=== PATIENT | female | born 1930 | race Caucasian/White ===

== ENCOUNTER 2017-05-04 18:29 | Inpatient (IN) | payer MEDICARE ==
[2017-05-04] MEDS ORDERED: ACETAMINOPHEN TAB 500 MG TAB PO STA (19:21)
[2017-05-04] MEDS ORDERED: MORPHINE SULFATE 2 MG/ML SYRINGE IVP STA (19:22)
--- NOTE | 2017-05-04 19:24 | ED ---
General Adult HPI - General Chief complaint: Fever Stated complaint: altered mental status Time Seen by Provider: 05/04/17 19:14 Source: family, EMS, RN notes reviewed Mode of arrival: EMS Limitations: altered mental status - History of Present Illness Initial comments: Patient is an 86-year-old female presenting to the emergency department for drowsiness and weakness. Patient went to bed last night and never got out of bed today. Patient has had similar symptoms previously associated with urinary tract infection. No cough. Family states there is a fever. Family requests pain medication for the patient stating she complained of her chronic pain. Patient is deaf and provides limited history. - Related Data Home Medications Medication Instructions Recorded Confirmed Furosemide [Lasix] 20 mg PO QAM 01/19/16 05/04/17 Lisinopril [Zestril] 10 mg PO DAILY 01/19/16 05/04/17 Pantoprazole Sodium 40 mg PO DAILY 01/19/16 05/04/17 Pregabalin [Lyrica] 100 mg PO TID 01/19/16 05/04/17 Aspirin EC [Ecotrin Low Dose] 81 mg PO DAILY 05/04/17 05/04/17 Atorvastatin Calcium [Lipitor] 80 mg PO HS 05/04/17 05/04/17 Cholecalciferol [Vitamin D3] 5,000 unit PO DAILY 05/04/17 05/04/17 Levothyroxine Sodium [Synthroid] 25 mcg PO QAM 05/04/17 05/04/17 Metoprolol Tartrate [Lopressor] 12.5 mg PO BID 05/04/17 05/04/17 oxyCODONE-APAP 5-325MG [Percocet 1 tab PO TID 05/04/17 05/04/17 5-325 mg] predniSONE 2.5 mg PO Q48H 05/04/17 05/04/17 predniSONE 5 mg PO Q48H 05/04/17 05/04/17 Allergies Allergy/AdvReac Type Severity Reaction Status Date / Time nitrofurantoin Allergy Unknown Verified 05/04/17 19:04 [From Macrobid] nitrofurantoin Allergy Unknown Verified 05/04/17 19:04 macrocrystalline [From Macrobid] ciprofloxacin [From Cipro] AdvReac Hallucinati Verified 05/04/17 19:43 ons ciprofloxacin HCl AdvReac Hallucinati Verified 05/04/17 19:43 [From Cipro] ons Review of Systems ROS Statement: Those systems with pertinent positive or pertinent negative responses have been documented in the HPI. ROS Other: All systems not noted in ROS Statement are negative. Limitations: ROS unobtainable due to patients medical condition Constitutional: Reports: fever Endocrine: Reports: fatigue Past Medical History Past Medical History: Coronary Artery Disease (CAD), Hyperlipidemia, Hypertension, Myocardial Infarction ([place]) Additional Past Medical History / Comment(s): deaf, depression followed by psychiatry, arthritis, sciatica, degen. disc disease, cataracts Last Myocardial Infarction Date:: 10/01/2014 History of Any Multi-Drug Resistant Organisms: MRSA Date of last positivie culture/infection: 02/11/2016 MDRO Source:: URINE Past Surgical History: Unable to Obtain, Hysterectomy Additional Past Surgical History / Comment(s): eye lid surgery, hip replacement , [place] with stents 2013 Past Anesthesia/Blood Transfusion Reactions: No Reported Reaction Date of Last Stent Placement:: 10/01/2014 Past Psychological History: Depression Smoking Status: Never smoker Past Alcohol Use History: None Reported Past Drug Use History: None Reported - Past Family History Mother Family Medical History: Cancer General Exam Limitations: altered mental status General appearance: in no apparent distress, other (Patient is sleeping but arousable to touch) Head exam: Present: atraumatic Eye exam: Present: normal appearance, PERRL ENT exam: Present: normal oropharynx Neck exam: Present: normal inspection. Absent: tenderness, meningismus Respiratory exam: Present: normal lung sounds bilaterally Cardiovascular Exam: Present: regular rate, normal rhythm GI/Abdominal exam: Present: soft. Absent: tenderness Extremities exam: Present: normal inspection Neurological exam: Present: alert Psychiatric exam: Present: flat affect Skin exam: Present: normal color Course Vital Signs 05/04/17 05/04/17 05/04/17 18:36 19:39 20:00 Temperature 102.1 F H 100.7 F H Pulse Rate 100 94 Respiratory 26 H 20 Rate Blood Pressure 171/72 129/68 O2 Sat by Pulse 97 97 Oximetry EKG Findings - EKG Comments: EKG Findings:: Normal sinus rhythm at 90. RI 178. QRS 74. QT 370. QTc 462. Normal axis. Normal QRS. No acute ST change. Medical Decision Making - Medical Decision Making Patient reexamined and somewhat more alert and improved. Source of fever is not identifiable at this time. No meningismus. Family updated on results. Case discussed with Dr. Garcia, who will admit for Dr. Sol. He does request neurology evaluation and Zosyn and vancomycin. Patient does not meet sepsis criteria as source of infection is not identifiable at this time. - Lab Data Result diagrams: 05/04/17 18:59 05/04/17 19:24 Lab Results 05/04/17 05/04/17 05/04/17 Range/Units 18:59 18:59 18:59 WBC 9.8 (3.8-10.6) k/uL RBC 3.97 (3.80-5.40) m/uL Hgb 11.6 (11.4-16.0) gm/dL Hct 35.9 (34.0-46.0) % MCV 90.3 (80.0-100.0) fL MCH 29.1 (25.0-35.0) pg MCHC 32.3 (31.0-37.0) g/dL RDW 14.0 (11.5-15.5) % Plt Count 191 (150-450) k/uL Neutrophils % 60 % Lymphocytes % 24 % Monocytes % 10 % Eosinophils % 2 % Basophils % 0 % Neutrophils # 5.8 (1.3-7.7) k/uL Lymphocytes # 2.4 (1.0-4.8) k/uL Monocytes # 1.0 (0-1.0) k/uL Eosinophils # 0.2 (0-0.7) k/uL Basophils # 0.0 (0-0.2) k/uL PT 10.1 (9.0-12.0) sec INR 1.0 (<1.1) APTT 19.4 L (22.0-30.0) sec Sodium (137-145) mmol/L Potassium (3.5-5.1) mmol/L Chloride (98-107) mmol/L Carbon Dioxide (22-30) mmol/L Anion Gap mmol/L BUN (7-17) mg/dL Creatinine (0.52-1.04) mg/dL Est GFR (MDRD) Af Amer (>60 ml/min/1.73 sqM) Est GFR (MDRD) Non-Af (>60 ml/min/1.73 sqM) Glucose (74-99) mg/dL Plasma Lactic Acid Juan Carlos 1.2 (0.7-2.0) mmol/L Calcium (8.4-10.2) mg/dL Total Bilirubin (0.2-1.3) mg/dL AST (14-36) U/L ALT (9-52) U/L Alkaline Phosphatase (38-126) U/L Total Protein (6.3-8.2) g/dL Albumin (3.5-5.0) g/dL Urine Color Urine Appearance (Clear) Urine pH (5.0-8.0) Ur Specific [place] (1.001-1.035) Urine Protein (Negative) Urine Glucose (UA) (Negative) Urine Ketones (Negative) Urine Blood (Negative) Urine Nitrite (Negative) Urine Bilirubin (Negative) Urine Urobilinogen (<2.0) mg/dL Ur Leukocyte Esterase (Negative) 05/04/17 05/04/17 Range/Units 18:59 19:24 WBC (3.8-10.6) k/uL RBC (3.80-5.40) m/uL Hgb (11.4-16.0) gm/dL Hct (34.0-46.0) % MCV (80.0-100.0) fL MCH (25.0-35.0) pg MCHC (31.0-37.0) g/dL RDW (11.5-15.5) % Plt Count (150-450) k/uL Neutrophils % % Lymphocytes % % Monocytes % % Eosinophils % % Basophils % % Neutrophils # (1.3-7.7) k/uL Lymphocytes # (1.0-4.8) k/uL Monocytes # (0-1.0) k/uL Eosinophils # (0-0.7) k/uL Basophils # (0-0.2) k/uL PT (9.0-12.0) sec INR (<1.1) APTT (22.0-30.0) sec Sodium 143 (137-145) mmol/L Potassium 3.7 (3.5-5.1) mmol/L Chloride 110 H (98-107) mmol/L Carbon Dioxide 25 (22-30) mmol/L Anion Gap 8 mmol/L BUN 24 H (7-17) mg/dL Creatinine 1.05 H (0.52-1.04) mg/dL Est GFR (MDRD) Af Amer >60 (>60 ml/min/1.73 sqM) Est GFR (MDRD) Non-Af 50 (>60 ml/min/1.73 sqM) Glucose 92 (74-99) mg/dL Plasma Lactic Acid [place] (0.7-2.0) mmol/L Calcium 8.7 (8.4-10.2) mg/dL Total Bilirubin 1.5 H (0.2-1.3) mg/dL AST 21 (14-36) U/L ALT 27 (9-52) U/L Alkaline Phosphatase 110 (38-126) U/L Total Protein 5.8 L (6.3-8.2) g/dL Albumin 3.3 L (3.5-5.0) g/dL Urine Color Yellow Urine Appearance Clear (Clear) Urine pH 5.5 (5.0-8.0) Ur Specific [place] 1.016 (1.001-1.035) Urine Protein Negative (Negative) Urine Glucose (UA) Negative (Negative) Urine Ketones Negative (Negative) Urine Blood Negative (Negative) Urine Nitrite Negative (Negative) Urine Bilirubin Negative (Negative) Urine Urobilinogen <2.0 (<2.0) mg/dL Ur Leukocyte Esterase Negative (Negative) - Radiology Data Radiology results: image reviewed (Chest x-ray shows no acute infiltrate) Disposition Clinical Impression: Altered mental status, Fever Disposition: ADMITTED IP TO THIS [facility] Referrals: Ivone Sol DO [Primary Care Provider] - 1-2 days Decision Time: 20:51
[2017-05-04 19:34] LABS: Appearance,Urine Clear (Clear); Basophils % (A) 0 %; Bilirubin,Urine Negative (Negative); CH 29.3; CHCM 32.6; Eosinophils # (A) 0.2 k/uL (0-0.7); Eosinophils % (A) 2 %; Glucose,Urine (UA) Negative (Negative); HCT 35.9 % (34.0-46.0); HDW 2.68; HGB 11.6 gm/dL (11.4-16.0); Ketones,Urine Negative (Negative); Leukocyte Esterase,Urine Negative (Negative); Luc % (Auto) 4; Lymphocytes # (A) 2.4 k/uL (1.0-4.8); Lymphocytes % (A) 24 %; MCH 29.1 pg (25.0-35.0); MCHC 32.3 g/dL (31.0-37.0); MCV 90.3 fL (80.0-100.0); Mean Platelet Volume 7.8; Monocytes % (A) 10 %; Neutrophils # (A) 5.8 k/uL (1.3-7.7); Neutrophils % (A) 60 %; Nitrite,Urine Negative (Negative); PH, Urine 5.5 (5.0-8.0); Protein,Urine Negative (Negative); RBC 3.97 m/uL (3.80-5.40); Specific Gravity,Urine 1.016 (1.001-1.035); UA Billing (MACRO vs. MICRO) CHEM; Urobilinogen,Urine <2.0 mg/dL (<2.0); WBC 9.8 k/uL (3.8-10.6); WBC (Perox) 10.16
[2017-05-04 19:57] LABS: Prothrombin Time 10.1 sec (9.0-12.0)
[2017-05-04] MEDS: SODIUM CHLORIDE 0.9% 500 ML IV SCH ×2 (20:06→20:40)
[2017-05-04 20:16] LABS: Partial Thromboplastin Time 19.4 sec (22.0-30.0)
--- NOTE | 2017-05-04 20:23 | XR ---
EXAMINATION TYPE: XR chest 2V DATE OF EXAM: 05/04/2017 COMPARISON: 01/28/2016 HISTORY: Fever and lethargy TECHNIQUE: Frontal and lateral views of the chest are obtained. FINDINGS: Heart size is normal. There is no heart failure. There is no sign of definite pleural flui d. There are chest leads. IMPRESSION: No active cardiopulmonary disease. There is clearing of the pleural effusions and pulmon umberto vascular congestion compared to old exam.
[2017-05-04 20:44] LABS: ALT 27 U/L (9-52); AST 21 U/L (14-36); Alkaline Phosphatase 110 U/L (38-126); Anion Gap 8 mmol/L; Blood Urea Nitrogen 24 mg/dL (7-17); Calcium 8.7 mg/dL (8.4-10.2); Carbon Dioxide 25 mmol/L (22-30); Chloride 110 mmol/L (98-107); Glucose 92 mg/dL (74-99); Non-African American GFR(MDRD) 50 (>60 ml/min/1.73 sqM); Potassium 3.7 mmol/L (3.5-5.1); Sodium 143 mmol/L (137-145); Total Bilirubin 1.5 mg/dL (0.2-1.3); Total Protein 5.8 g/dL (6.3-8.2)
[2017-05-04] MEDS ORDERED: NALOXONE 0.4 MG/ML 1 ML VIAL IV PRN (20:51)
[2017-05-04] MEDS ORDERED: ACETAMINOPHEN TAB 325 MG TAB PO PRN (20:51)
[2017-05-04] MEDS ORDERED: IV VANCOMYCIN PER PHARMACY 1 EACH MISC MISCELLANE PRN (20:53)
[2017-05-04] MEDS ORDERED: VANCOMYCIN 1,250 MG in SODIUM CHLORIDE 0.9% 250 ML IVPB ONE (21:15)
[2017-05-04] MEDS: SODIUM CHLORIDE 0.9% 1,000 ML IV SCH (21:36)
[2017-05-04] MEDS: PIPERACILLIN-TAZOBACTAM 3.375 GM in DEXTROSE/WATER 1 50ML.BAG IVPB SCH (21:37)
--- NOTE | 2017-05-04 21:43 | US ---
EXAMINATION TYPE: US gallbladder DATE OF EXAM: 05/04/2017 COMPARISON: Prior CT and renal ultrasound in PACS CLINICAL HISTORY: fever, Abdominal pain, history of renal failure. Altered mental status. Patient is deaf per family making this an extremely difficult and limited exam due to patient being unable to fo llow instructions to take deep breaths in and hold, roll over, ect. . EXAM MEASUREMENTS: Liver Length: 12.7 cm Gallbladder Wall: 0.2 cm CBD: 0.3 cm Right Kidney: 8.1 x 4.1 x 3.8 cm Pancreas: Obscured by bowel gas Liver: Limited visualization- Obscured by bowel gas. Hyperechoic foci visualized measuring 0.6 cm, p ossible calcification visualized on prior CT Gallbladder: Echogenic foci visualized within fundus. Appears slightly hydropic. Evidence for sonographic Greene's sign: No CBD: wnl as visualized, distal portion is obscured by bowel gas Right Kidney: Measuring small. No hydronephrosis, no cystic or solid masses visualized IMPRESSION: dilated gallbladder with gallstones. This is suggestive of cholecystitis. No dilated duct s. No ascites. Gallbladder measures 9.2 x 4.5 cm.
--- NOTE | 2017-05-04 22:06 | CT ---
EXAMINATION TYPE: CT brain wo con DATE OF EXAM: 05/04/2017 COMPARISON: December 21, 2014 HISTORY: ams CT DLP: 1058 mGycm Automated exposure control for dose reduction was used. FINDINGS: There is no mass effect nor midline shift. There is no sign of intracranial hemorrhage. There is mild cerebral atrophy. The calvarium is intact. IMPRESSION: MILD ATROPHY. NO ACUTE INTRACRANIAL ABNORMALITY. NO CHANGE COMPARED TO OLD EXAM.
[2017-05-04 23:31] VITALS: BMI 30.8
[2017-05-05] MEDS: ONDANSETRON 4 MG/2 ML VIAL IVP PRN (03:24)
[2017-05-05] MEDS: HYDROmorphone 1 MG/ML 1 ML SYRINGE IVP PRN ×5 (03:24→21:33)
[2017-05-05 08:07] LABS: ALT 23 U/L (9-52); AST 18 U/L (14-36); Alkaline Phosphatase 75 U/L (38-126); Anion Gap 5 mmol/L; Blood Urea Nitrogen 20 mg/dL (7-17); Calcium 7.6 mg/dL (8.4-10.2); Carbon Dioxide 25 mmol/L (22-30); Chloride 113 mmol/L (98-107); Glucose 82 mg/dL (74-99); Non-African American GFR(MDRD) 52 (>60 ml/min/1.73 sqM); Potassium 3.4 mmol/L (3.5-5.1); Sodium 143 mmol/L (137-145); Total Bilirubin 1.5 mg/dL (0.2-1.3); Total Protein 4.8 g/dL (6.3-8.2)
[2017-05-05 08:15] LABS: Basophils % (A) 0 %; CH 29.2; CHCM 31.6; Eosinophils # (A) 0.1 k/uL (0-0.7); Eosinophils % (A) 2 %; HCT 31.4 % (34.0-46.0); HDW 2.62; Luc % (Auto) 3; Lymphocytes # (A) 1.7 k/uL (1.0-4.8); Lymphocytes % (A) 27 %; MCH 29.6 pg (25.0-35.0); MCHC 31.9 g/dL (31.0-37.0); MCV 92.9 fL (80.0-100.0); Mean Platelet Volume 7.4; Monocytes # (A) 0.4 k/uL (0-1.0); Monocytes % (A) 7 %; Neutrophils # (A) 3.9 k/uL (1.3-7.7); Neutrophils % (A) 62 %; RBC 3.38 m/uL (3.80-5.40); WBC 6.3 k/uL (3.8-10.6); WBC (Perox) 6.64
[2017-05-05] MEDS: SODIUM CHLORIDE 0.9% 1,000 ML IV SCH (11:15)
[2017-05-05] MEDS: PIPERACILLIN-TAZOBACTAM 3.375 GM in DEXTROSE/WATER 1 50ML.BAG IVPB SCH (11:18)
--- NOTE | 2017-05-05 16:33 | P.HPIM ---
History of Present Illness H&P Date: 05/05/17 Chief Complaint: Febrile illness Patient is an 86-year-old female presenting to the emergency department for drowsiness and weakness. Patient went to bed last night and never got out of bed today. Patient has had similar symptoms previously associated with urinary tract infection. No cough. Family states there is a fever. Family requests pain medication for the patient stating she complained of her chronic pain. Patient is deaf and provides limited history. Past Medical History Past Medical History: Coronary Artery Disease (CAD), Hyperlipidemia, Hypertension, Myocardial Infarction ([place]) Additional Past Medical History / Comment(s): deaf, depression followed by psychiatry, arthritis, sciatica, degen. disc disease, cataracts, multiple UTIs Last Myocardial Infarction Date:: 10/01/2014 History of Any Multi-Drug Resistant Organisms: MRSA Date of last positivie culture/infection: 02/11/2016 MDRO Source:: URINE Past Surgical History: Unable to Obtain, Heart Catheterization With Stent, Hysterectomy Additional Past Surgical History / Comment(s): eye lid surgery, hip replacement , [place] with stents 2013, cysts removal from breasts Past Anesthesia/Blood Transfusion Reactions: No Reported Reaction Date of Last Stent Placement:: 10/01/2014 Past Psychological History: Depression Smoking Status: Never smoker Past Alcohol Use History: None Reported Past Drug Use History: None Reported - Past Family History Daughter(s) Family Medical History: Cancer Additional Family Medical History / Comment(s): cervical cancer Son(s) Family Medical History: Liver Disease Sister(s) Family Medical History: Cancer, Myocardial Infarction ([place]) Mother Family Medical History: Cancer Additional Family Medical History / Comment(s): colon cancer Medications and Allergies Home Medications Medication Instructions Recorded Confirmed Type Furosemide [Lasix] 20 mg PO QAM 01/19/16 05/04/17 History Lisinopril [Zestril] 10 mg PO DAILY 01/19/16 05/04/17 History Pantoprazole Sodium 40 mg PO DAILY 01/19/16 05/04/17 History Pregabalin [Lyrica] 100 mg PO TID 01/19/16 05/04/17 History Aspirin EC [Ecotrin Low Dose] 81 mg PO DAILY 05/04/17 05/04/17 History Atorvastatin Calcium [Lipitor] 80 mg PO HS 05/04/17 05/04/17 History Cholecalciferol [Vitamin D3] 5,000 unit PO DAILY 05/04/17 05/04/17 History Levothyroxine Sodium [Synthroid] 25 mcg PO QAM 05/04/17 05/04/17 History Metoprolol Tartrate [Lopressor] 12.5 mg PO BID 05/04/17 05/04/17 History oxyCODONE-APAP 5-325MG [Percocet 1 tab PO TID 05/04/17 05/04/17 History 5-325 mg] predniSONE 2.5 mg PO Q48H 05/04/17 05/04/17 History predniSONE 5 mg PO Q48H 05/04/17 05/04/17 History Allergies Allergy/AdvReac Type Severity Reaction Status Date / Time nitrofurantoin Allergy Unknown Verified 05/04/17 19:04 [From Macrobid] nitrofurantoin Allergy Unknown Verified 05/04/17 19:04 macrocrystalline [From Macrobid] ciprofloxacin [From Cipro] AdvReac Hallucinati Verified 05/04/17 19:43 ons ciprofloxacin HCl AdvReac Hallucinati Verified 05/04/17 19:43 [From Cipro] ons Physical Exam Vitals: Vital Signs Temp Pulse Pulse Resp BP BP Pulse Ox 05/05/17 16:00 79 18 05/05/17 15:00 98.3 F 79 18 129/57 98 05/05/17 08:00 76 18 05/05/17 07:00 98.0 F 76 18 158/67 100 05/05/17 00:00 75 18 05/04/17 22:30 98.2 F 75 18 124/60 98 05/04/17 22:00 100.0 F H 69 20 102/51 05/04/17 21:00 100.1 F H 88 16 106/50 98 05/04/17 20:00 100.7 F H 05/04/17 19:39 94 20 129/68 97 05/04/17 18:36 102.1 F H 100 26 H 171/72 97 Intake and Output 05/05/17 05/05/17 05/05/17 06:59 14:59 22:59 Intake Total 630 Balance 630 Intake: Intake, IV Titration 630 Amount Sodium Chloride 0.9% 1, 630 000 ml @ 105 mls/hr IV . Q9H32M [facility] Rx#:[id number] Other: Voiding Method Bedpan Bedpan Bedpan # Voids 1 1 1 Weight 79 kg 79 kg 79 kg Patient Weight 05/06/17 06:59 Weight 79 kg In general patient is alert she is deaf she is able to read off the paper and answer questions appropriately HEENT head normocephalic and atraumatic Neck is supple no JVD no goiter no lymphadenopathy Chest exam reveals a few scattered crackles no wheezing Cardiac exam reveals regular heart sounds S1 and S2 no gallops no murmurs Abdomen is soft with mild epigastric tenderness no organomegaly with normal bowel sounds Extremity exam reveals no edema no cyanosis or clubbing Results CBC & Chem 7: 05/05/17 07:12 05/05/17 07:12 Labs: Abnormal Lab Results - Last 24 Hours (Table) 05/04/17 05/04/17 05/05/17 Range/Units 18:59 19:24 07:12 RBC 3.38 L (3.80-5.40) m/uL Hgb 10.0 L D (11.4-16.0) gm/dL Hct 31.4 L (34.0-46.0) % APTT 19.4 L (22.0-30.0) sec Potassium (3.5-5.1) mmol/L Chloride 110 H (98-107) mmol/L BUN 24 H (7-17) mg/dL Creatinine 1.05 H (0.52-1.04) mg/dL Calcium (8.4-10.2) mg/dL Total Bilirubin 1.5 H (0.2-1.3) mg/dL Total Protein 5.8 L (6.3-8.2) g/dL Albumin 3.3 L (3.5-5.0) g/dL 05/05/17 Range/Units 07:12 RBC (3.80-5.40) m/uL Hgb (11.4-16.0) gm/dL Hct (34.0-46.0) % APTT (22.0-30.0) sec Potassium 3.4 L (3.5-5.1) mmol/L Chloride 113 H (98-107) mmol/L BUN 20 H (7-17) mg/dL Creatinine (0.52-1.04) mg/dL Calcium 7.6 L (8.4-10.2) mg/dL Total Bilirubin 1.5 H (0.2-1.3) mg/dL Total Protein 4.8 L (6.3-8.2) g/dL Albumin 2.5 L (3.5-5.0) g/dL Microbiology - Last 24 Hours (Table) 05/04/17 18:59 Urine Culture - Preliminary Urine,Catheterized Thrombosis Risk Factor Assmnt - Choose All That Apply Any of the Below Risk Factors Present?: Yes Each Factor Represents 1 point: Acute [place] Other Risk Factors: Yes Each Risk Factor Represents 3 Points: Age 75 years or older Other congenital or acquired thrombophilia - If yes, enter type in comment: No Thrombosis Risk Factor Assessment Total Risk Factor Score: 4 Thrombosis Risk Factor Assessment Level: Moderate Risk Assessment and Plan Plan: #1 febrile illness, cause initially unclear, urine did not reveal any evidence of infection, chest x-ray did not reveal any acute abnormality, case was discussed was ER physician and I have asked him to proceed with abdomen ultrasound, this was done later end revealed evidence of dilated gallbladder with gallstones with evidence of cholecystitis, consultation for Dr. pratt was initiated. At this time will continue with IV antibiotic Zosyn and vancomycin #2 mental status changes on presentation, computed tomography scan of the brain was done and revealed evidence of atrophy without any evidence of acute intracranial abnormality otherwise. #3 underlying history of hypertension well-controlled on current medications #4 underlying history of hypothyroidism maintained on Synthroid 25 g daily #5 underlying history of coronary artery disease with previous history of myocardial infarction stable at this time without any evidence of cardiac disease #6 patient is deaf she is able to communicate with reading questions and answering them At this time continue with current management with IV antibiotic awaiting surgery input will follow closely
--- NOTE | 2017-05-05 19:18 | P.CNNES ---
History of Present Illness Consult date: 05/05/17 History of Present Illness: The patient is a 86-year-old woman who has been in her usual health up until 2 days ago when her daughter found that she was sleeping excessively. She also had a fever. She was brought to the emergency room for excessive somnolence and fever. The patient apparently had similar episodes in the past associated with urosepsis. She was placed on IV antibiotics and neurology was called to see the patient regarding mental status changes. The patient's daughter is at her bedside. She states that her mother's but is able to communicate by reading what is written. She is much more alert and back to her baseline today according to her daughter. The patient denies any pain. She did states she is feeling well. She states her only complaint is chronic leg pain which she's had for 3-10 years. She had a CT of the brain in the emergency room which showed mild atrophy. Review of Systems Constitutional: Denies chills, Denies fever Eyes: denies blurred vision, denies pain Cardiovascular: Denies chest pain, Denies shortness of breath Respiratory: Denies cough Gastrointestinal: Reports as per HPI Genitourinary: Denies dysuria, Denies hematuria Neurological: Denies numbness, Denies weakness Psychiatric: Denies anxiety, Denies depression Past Medical History Past Medical History: Coronary Artery Disease (CAD), Hyperlipidemia, Hypertension, Myocardial Infarction ([place]) Additional Past Medical History / Comment(s): deaf, depression followed by psychiatry, arthritis, sciatica, degen. disc disease, cataracts, multiple UTIs Last Myocardial Infarction Date:: 10/01/2014 History of Any Multi-Drug Resistant Organisms: MRSA Date of last positivie culture/infection: 02/11/2016 MDRO Source:: URINE Past Surgical History: Unable to Obtain, Heart Catheterization With Stent, Hysterectomy Additional Past Surgical History / Comment(s): eye lid surgery, hip replacement , [place] with stents 2013, cysts removal from breasts Past Anesthesia/Blood Transfusion Reactions: No Reported Reaction Date of Last Stent Placement:: 10/01/2014 Past Psychological History: Depression Smoking Status: Never smoker Past Alcohol Use History: None Reported Past Drug Use History: None Reported - Past Family History Daughter(s) Family Medical History: Cancer Additional Family Medical History / Comment(s): cervical cancer Son(s) Family Medical History: Liver Disease Sister(s) Family Medical History: Cancer, Myocardial Infarction ([place]) Mother Family Medical History: Cancer Additional Family Medical History / Comment(s): colon cancer Medications and Allergies Home Medications Medication Instructions Recorded Confirmed Type Furosemide [Lasix] 20 mg PO QAM 01/19/16 05/04/17 History Lisinopril [Zestril] 10 mg PO DAILY 01/19/16 05/04/17 History Pantoprazole Sodium 40 mg PO DAILY 01/19/16 05/04/17 History Pregabalin [Lyrica] 100 mg PO TID 01/19/16 05/04/17 History Aspirin EC [Ecotrin Low Dose] 81 mg PO DAILY 05/04/17 05/04/17 History Atorvastatin Calcium [Lipitor] 80 mg PO HS 05/04/17 05/04/17 History Cholecalciferol [Vitamin D3] 5,000 unit PO DAILY 05/04/17 05/04/17 History Levothyroxine Sodium [Synthroid] 25 mcg PO QAM 05/04/17 05/04/17 History Metoprolol Tartrate [Lopressor] 12.5 mg PO BID 05/04/17 05/04/17 History oxyCODONE-APAP 5-325MG [Percocet 1 tab PO TID 05/04/17 05/04/17 History 5-325 mg] predniSONE 2.5 mg PO Q48H 05/04/17 05/04/17 History predniSONE 5 mg PO Q48H 05/04/17 05/04/17 History Allergies Allergy/AdvReac Type Severity Reaction Status Date / Time nitrofurantoin Allergy Unknown Verified 05/04/17 19:04 [From Macrobid] nitrofurantoin Allergy Unknown Verified 05/04/17 19:04 macrocrystalline [From Macrobid] ciprofloxacin [From Cipro] AdvReac Hallucinati Verified 05/04/17 19:43 ons ciprofloxacin HCl AdvReac Hallucinati Verified 05/04/17 19:43 [From Cipro] ons Physical Examination - Vital Signs Vital Signs: Vital Signs Temp Pulse Pulse Resp BP BP Pulse Ox 05/05/17 16:00 79 18 05/05/17 15:00 98.3 F 79 18 129/57 98 05/05/17 08:00 76 18 05/05/17 07:00 98.0 F 76 18 158/67 100 05/05/17 00:00 75 18 05/04/17 22:30 98.2 F 75 18 124/60 98 05/04/17 22:00 100.0 F H 69 20 102/51 05/04/17 21:00 100.1 F H 88 16 106/50 98 05/04/17 20:00 100.7 F H 05/04/17 19:39 94 20 129/68 97 Intake and Output 05/05/17 05/05/17 05/05/17 06:59 14:59 22:59 Intake Total 630 Balance 630 Intake: Intake, IV Titration 630 Amount Sodium Chloride 0.9% 1, 630 000 ml @ 105 mls/hr IV . Q9H32M [facility] Rx#:[id number] Other: Voiding Method Bedpan Bedpan Bedpan # Voids 1 1 1 Weight 79 kg 79 kg 79 kg Patient Weight 05/06/17 06:59 Weight 79 kg - Constitutional General appearance: average body habitus - EENT EENT: vision intact, hearing diminished - Respiratory Respiratory: lungs clear - Cardiovascular Cardiovascular: regular rate, normal S1, normal S2 - Neurologic Patient was easily awakened. She was alert and able to speak. She is deaf and had to communicate by reading what is written. There is no a aphasia or dysarthria. Cranial nerve examination: PERRL, EOMI, VFF, face symmetric, tongue midline Detailed motor examination: grossly full strength in all extremities - Psychiatric Psychiatric: mood/affect appropriate Results - Laboratory Findings CBC and BMP: 05/05/17 07:12 05/05/17 07:12 Abnormal Lab Findings: Abnormal Labs 05/04/17 05/04/17 05/05/17 18:59 19:24 07:12 RBC 3.38 L Hgb 10.0 L D Hct 31.4 L APTT 19.4 L Potassium Chloride 110 H BUN 24 H Creatinine 1.05 H Calcium Total Bilirubin 1.5 H Total Protein 5.8 L Albumin 3.3 L 05/05/17 07:12 RBC Hgb Hct APTT Potassium 3.4 L Chloride 113 H BUN 20 H Creatinine Calcium 7.6 L Total Bilirubin 1.5 H Total Protein 4.8 L Albumin 2.5 L Assessment and Plan (1) Altered mental status Status: Acute Code(s): R41.82 - ALTERED MENTAL STATUS, UNSPECIFIED (2) Febrile illness Status: Acute Code(s): R50.9 - FEVER, UNSPECIFIED Plan: The patient is an 86-year-old woman with history of deafness and generalized weakness who lives at home under the care of her 2 daughters. She apparently has been having fever and lethargy for 2 days and was brought to the emergency room with those symptoms. The patient is quite alert and awake and back to her baseline today according to her daughter. She is receiving IV antibiotics for unknown febrile illness. She had a CT of the brain in the emergency room which showed mild atrophy. The patient according to family is back to baseline. Is no evidence of delirium at this time. She may have had a mild encephalopathy which has resolved.
[2017-05-05] MEDS ORDERED: Potassium Replacement Protocol 1 EACH MISC MISCELLANE PRN (20:02)
[2017-05-05] MEDS: POTASSIUM CHLORIDE ER 20 MEQ TAB.ER PO SCH ×2 (21:11→23:15)
[2017-05-05] MEDS: VANCOMYCIN 1,250 MG in SODIUM CHLORIDE 0.9% 250 ML IVPB SCH (21:11)
[2017-05-05] MEDS: METOPROLOL TARTRATE 12.5 MG TAB PO SCH (21:35)
[2017-05-05] MEDS: ATORVASTATIN 80 MG TAB PO SCH (21:36)
[2017-05-05] MEDS: PREGABALIN 100 MG CAP PO SCH (23:15)
[2017-05-06] MEDS: HYDROmorphone 1 MG/ML 1 ML SYRINGE IVP PRN ×5 (00:43→19:39)
[2017-05-06] MEDS: SODIUM CHLORIDE 0.9% 1,000 ML IV SCH ×4 (00:51→21:55)
[2017-05-06] MEDS: LEVOTHYROXINE 25 MCG TAB PO SCH (05:24)
[2017-05-06 07:52] LABS: CH 28.7; CHCM 31.8; HCT 27.9 % (34.0-46.0); HDW 2.87; HGB 9.2 gm/dL (11.4-16.0); MCH 29.9 pg (25.0-35.0); MCHC 32.9 g/dL (31.0-37.0); MCV 90.8 fL (80.0-100.0); RBC 3.07 m/uL (3.80-5.40); RDW 13.7 % (11.5-15.5); WBC 6.8 k/uL (3.8-10.6)
[2017-05-06 08:14] LABS: ALT 22 U/L (9-52); AST 17 U/L (14-36); Alkaline Phosphatase 69 U/L (38-126); Anion Gap 3 mmol/L; Blood Urea Nitrogen 16 mg/dL (7-17); Carbon Dioxide 24 mmol/L (22-30); Chloride 114 mmol/L (98-107); Glucose 82 mg/dL (74-99); Non-African American GFR(MDRD) 53 (>60 ml/min/1.73 sqM); Potassium 4.4 mmol/L (3.5-5.1); Sodium 141 mmol/L (137-145); Total Bilirubin 2.1 mg/dL (0.2-1.3); Total Protein 4.7 g/dL (6.3-8.2)
[2017-05-06] MEDS: LISINOPRIL 10 MG TAB PO SCH (08:28)
[2017-05-06] MEDS: PANTOPRAZOLE 40 MG TABLET PO SCH (08:28)
[2017-05-06] MEDS: FUROSEMIDE 20 MG TAB PO SCH (08:28)
[2017-05-06] MEDS: ASPIRIN 81 MG CHEW PO SCH (08:28)
[2017-05-06] MEDS: METOPROLOL TARTRATE 12.5 MG TAB PO SCH ×2 (08:28→21:55)
[2017-05-06] MEDS: PREGABALIN 100 MG CAP PO SCH ×3 (08:28→22:28)
--- NOTE | 2017-05-06 10:09 | P.GSCN ---
History of Present Illness Consult date: 05/06/17 History of present illness: The patient is an 86 yo female brought into the ED by her family for lethargy and some confusion. She had this previously with a urinary tract infection so the family was concerned she could have another one. The urine appeared okay but she did have a slight increase in her bilirubin. Ultrasound was done showing multiple gallstones and concern for hydrops of the gallbladder. I spoke with the patient's daughter Pari over the phone today. I communicated with the patient via writing. The patient does admit to some discomfort in the right side of her abdomen. No nausea or vomiting. No jaundice at home. The patient is very reluctant to have any surgery. She has concerns of dying with surgery or anesthetic. Review of Systems All systems: negative Past Medical History Past Medical History: Coronary Artery Disease (CAD), Hyperlipidemia, Hypertension, Myocardial Infarction ([place]) Additional Past Medical History / Comment(s): deaf, depression followed by psychiatry, arthritis, sciatica, degen. disc disease, cataracts, multiple UTIs Last Myocardial Infarction Date:: 10/01/2014 History of Any Multi-Drug Resistant Organisms: MRSA Year Discovered:: 02/11/2016 MDRO Source:: URINE Past Surgical History: Unable to Obtain, Heart Catheterization With Stent, Hysterectomy Additional Past Surgical History / Comment(s): eye lid surgery, hip replacement , [place] with stents 2013, cysts removal from breasts Past Anesthesia/Blood Transfusion Reactions: No Reported Reaction Date of Last Stent Placement:: 10/01/2014 Past Psychological History: Depression Smoking Status: Never smoker Past Alcohol Use History: None Reported Past Drug Use History: None Reported - Past Family History Daughter(s) Family Medical History: Cancer Additional Family Medical History / Comment(s): cervical cancer Son(s) Family Medical History: Liver Disease Sister(s) Family Medical History: Cancer, Myocardial Infarction ([place]) Mother Family Medical History: Cancer Additional Family Medical History / Comment(s): colon cancer Medications and Allergies Home Medications Medication Instructions Recorded Confirmed Type Furosemide [Lasix] 20 mg PO QAM 01/19/16 05/04/17 History Lisinopril [Zestril] 10 mg PO DAILY 01/19/16 05/04/17 History Pantoprazole Sodium 40 mg PO DAILY 01/19/16 05/04/17 History Pregabalin [Lyrica] 100 mg PO TID 01/19/16 05/04/17 History Aspirin EC [Ecotrin Low Dose] 81 mg PO DAILY 05/04/17 05/04/17 History Atorvastatin Calcium [Lipitor] 80 mg PO HS 05/04/17 05/04/17 History Cholecalciferol [Vitamin D3] 5,000 unit PO DAILY 05/04/17 05/04/17 History Levothyroxine Sodium [Synthroid] 25 mcg PO QAM 05/04/17 05/04/17 History Metoprolol Tartrate [Lopressor] 12.5 mg PO BID 05/04/17 05/04/17 History oxyCODONE-APAP 5-325MG [Percocet 1 tab PO TID 05/04/17 05/04/17 History 5-325 mg] predniSONE 2.5 mg PO Q48H 05/04/17 05/04/17 History predniSONE 5 mg PO Q48H 05/04/17 05/04/17 History Allergies Allergy/AdvReac Type Severity Reaction Status Date / Time nitrofurantoin Allergy Unknown Verified 05/04/17 19:04 [From Macrobid] nitrofurantoin Allergy Unknown Verified 05/04/17 19:04 macrocrystalline [From Macrobid] ciprofloxacin [From Cipro] AdvReac Hallucinati Verified 05/04/17 19:43 ons ciprofloxacin HCl AdvReac Hallucinati Verified 05/04/17 19:43 [From Cipro] ons Surgical - Exam Osteopathic Statement: *. No significant issues noted on an osteopathic structural exam other than those noted in the History and Physical/Consult. Vital Signs Temp Pulse Resp BP Pulse Ox 102.1 F H 100 26 H 171/72 97 05/04/17 18:36 05/04/17 18:36 05/04/17 18:36 05/04/17 18:36 05/04/17 18:36 - General well developed, well nourished, no distress - Eyes normal ocular movement - ENT decreased hearing - Neck trachea midline - Respiratory normal respiratory effort, clear to auscultation - Cardiovascular Rhythm: regular - Abdomen Abdomen: soft, tender (Minimal right upper quadrant), no guarding, no rigid, no rebound, distended (Mildly tympanitic) Results - Labs 05/06/17 07:25 05/06/17 07:25 Abnormal Lab Results - Last 24 Hours (Table) 05/06/17 05/06/17 Range/Units 07:25 07:25 RBC 3.07 L (3.80-5.40) m/uL Hgb 9.2 L (11.4-16.0) gm/dL Hct 27.9 L (34.0-46.0) % Chloride 114 H (98-107) mmol/L Calcium 8.0 L (8.4-10.2) mg/dL Total Bilirubin 2.1 H (0.2-1.3) mg/dL Total Protein 4.7 L (6.3-8.2) g/dL Albumin 2.4 L (3.5-5.0) g/dL Microbiology - Last 24 Hours (Table) 05/04/17 18:59 Urine Culture - Final Urine,Catheterized 05/04/17 18:59 Blood Culture - Preliminary Blood No Growth after 24 hours Diabetes panel 05/06/17 Range/Units 07:25 Sodium 141 (137-145) mmol/L Potassium 4.4 (3.5-5.1) mmol/L Chloride 114 H (98-107) mmol/L Carbon Dioxide 24 (22-30) mmol/L BUN 16 (7-17) mg/dL Creatinine 0.99 (0.52-1.04) mg/dL Glucose 82 (74-99) mg/dL Calcium 8.0 L (8.4-10.2) mg/dL AST 17 (14-36) U/L ALT 22 (9-52) U/L Alkaline Phosphatase 69 (38-126) U/L Total Protein 4.7 L (6.3-8.2) g/dL Albumin 2.4 L (3.5-5.0) g/dL Calcium panel 05/06/17 Range/Units 07:25 Calcium 8.0 L (8.4-10.2) mg/dL Albumin 2.4 L (3.5-5.0) g/dL Pituitary panel 05/06/17 Range/Units 07:25 Sodium 141 (137-145) mmol/L Potassium 4.4 (3.5-5.1) mmol/L Chloride 114 H (98-107) mmol/L Carbon Dioxide 24 (22-30) mmol/L BUN 16 (7-17) mg/dL Creatinine 0.99 (0.52-1.04) mg/dL Glucose 82 (74-99) mg/dL Calcium 8.0 L (8.4-10.2) mg/dL Adrenal panel 05/06/17 Range/Units 07:25 Sodium 141 (137-145) mmol/L Potassium 4.4 (3.5-5.1) mmol/L Chloride 114 H (98-107) mmol/L Carbon Dioxide 24 (22-30) mmol/L BUN 16 (7-17) mg/dL Creatinine 0.99 (0.52-1.04) mg/dL Glucose 82 (74-99) mg/dL Calcium 8.0 L (8.4-10.2) mg/dL Total Bilirubin 2.1 H (0.2-1.3) mg/dL AST 17 (14-36) U/L ALT 22 (9-52) U/L Alkaline Phosphatase 69 (38-126) U/L Total Protein 4.7 L (6.3-8.2) g/dL Albumin 2.4 L (3.5-5.0) g/dL - Imaging Additional studies: Abdominal ultrasound report reviewed Assessment and Plan (1) Cholelithiasis with acute cholecystitis Status: Acute (2) Altered mental status Status: Acute (3) Febrile illness Status: Acute Plan: The patient is currently on IV antibiotics. Her bilirubin is trending upwards which would be consistent with cute Choleycystitis. I discussed the risk and complications of surgery versus no surgery with the patient's daughter. The risks associated with severe cholecystitis would be higher than performing a laparoscopic cholecystectomy earlier in her course. The patient and daughters will discuss this. Further recommendations to follow
--- NOTE | 2017-05-06 12:37 | P.PN ---
Subjective Patient is an 86-year-old female presenting to the emergency department for drowsiness,weakness and fever. Patient went to bed last night and never got out of bed today. Patient has had similar symptoms previously associated with urinary tract infection. No cough. Family states there is a fever. Family requests pain medication for the patient stating she complained of her chronic pain. Patient is deaf and provides limited history. Patient was found to have evidence of acute cholecystitis. Started on IV antibiotics. And waiting family's decision on possible laparoscopic cholecystectomy. Patient resting in bed comfortably. She is scheduled for EEG today Objective - Vital Signs Vital signs: Vital Signs Temp 97.0 F L 05/06/17 07:00 Pulse 63 05/06/17 07:00 Resp 18 05/06/17 07:00 BP 131/53 05/06/17 07:00 Pulse Ox 98 05/06/17 07:00 Intake & Output 05/05/17 05/06/17 05/06/17 18:59 06:59 18:59 Weight 79 kg Other: Voiding Method Bedpan # Voids 1 1 1 - Exam Head normocephalic Neck supple Lungs clear to auscultation bilaterally no wheezing or crackles Heart regular rate and rhythm S1-S2, no rub or gallop Abdomen is soft tender right upper quadrant epigastric area nondistended positive bowel sounds no hepatosplenomegaly Extremities no edema Neuro alert and orientated to 3 - Labs CBC & Chem 7: 05/06/17 07:25 05/06/17 07:25 Labs: Abnormal Lab Results - Last 24 Hours (Table) 05/06/17 05/06/17 Range/Units 07:25 07:25 RBC 3.07 L (3.80-5.40) m/uL Hgb 9.2 L (11.4-16.0) gm/dL Hct 27.9 L (34.0-46.0) % Chloride 114 H (98-107) mmol/L Calcium 8.0 L (8.4-10.2) mg/dL Total Bilirubin 2.1 H (0.2-1.3) mg/dL Total Protein 4.7 L (6.3-8.2) g/dL Albumin 2.4 L (3.5-5.0) g/dL Microbiology - Last 24 Hours (Table) 05/04/17 18:59 Urine Culture - Final Urine,Catheterized 05/04/17 18:59 Blood Culture - Preliminary Blood No Growth after 24 hours Assessment and Plan Plan: 1. Acute cholecystitis: Continue with IV antibiotics. Awaiting further surgical recommendations and family's decision about proceeding with laparoscopic cholecystectomy 2. Altered mental status changes likely a metabolic encephalopathy due to her acute cholecystitis. computed tomography scan of the brain was done and revealed evidence of atrophy without any evidence of acute intracranial abnormality otherwise. Patient also evaluated by neurology #3 underlying history of hypertension well-controlled on current medications #4 underlying history of hypothyroidism maintained on Synthroid 25 g daily #5 underlying history of coronary artery disease with previous history of myocardial infarction stable at this time without any evidence of cardiac disease #6 patient is deaf she is able to communicate with reading questions and answering them DVT prophylaxis SCDs and GI prophylaxis Protonix I performed an examination of the patient and discussed their management with the physician Head Of Transport Logistics. I have reviewed the Physician Head Of [employer] Logistics's notes and agree with the documented findings and plan of care
[2017-05-06] MEDS: CHOLECALCIFEROL 1,000 UNIT TAB PO SCH (13:12)
[2017-05-06] MEDS: PIPERACILLIN-TAZOBACTAM 3.375 GM in DEXTROSE/WATER 1 50ML.BAG IVPB SCH (18:06)
[2017-05-06] MEDS: VANCOMYCIN 1,250 MG in SODIUM CHLORIDE 0.9% 250 ML IVPB SCH ×2 (21:53→22:27)
[2017-05-06] MEDS: ATORVASTATIN 80 MG TAB PO SCH (21:55)
[2017-05-07] MEDS: HYDROmorphone 1 MG/ML 1 ML SYRINGE IVP PRN ×3 (00:09→10:12)
[2017-05-07] MEDS: PIPERACILLIN-TAZOBACTAM 3.375 GM in DEXTROSE/WATER 1 50ML.BAG IVPB SCH ×3 (01:12→18:16)
[2017-05-07 02:55] LABS: Appearance,Urine Clear (Clear); Bilirubin,Urine Negative (Negative); Glucose,Urine (UA) Negative (Negative); Ketones,Urine 1+ (Negative); Leukocyte Esterase,Urine Negative (Negative); Nitrite,Urine Negative (Negative); Protein,Urine Negative (Negative); UA Billing (MACRO vs. MICRO) CHEM; Urobilinogen,Urine <2.0 mg/dL (<2.0)
[2017-05-07] MEDS: SODIUM CHLORIDE 0.9% 1,000 ML IV SCH ×2 (06:27→17:22)
[2017-05-07] MEDS: LEVOTHYROXINE 25 MCG TAB PO SCH (06:27)
[2017-05-07] MEDS: PREGABALIN 100 MG CAP PO SCH ×3 (08:13→22:52)
[2017-05-07] MEDS: PANTOPRAZOLE 40 MG TABLET PO SCH (08:13)
[2017-05-07] MEDS: METOPROLOL TARTRATE 12.5 MG TAB PO SCH ×2 (08:13→20:59)
[2017-05-07] MEDS: ASPIRIN 81 MG CHEW PO SCH (08:13)
[2017-05-07] MEDS: LISINOPRIL 10 MG TAB PO SCH (08:14)
[2017-05-07] MEDS: FUROSEMIDE 20 MG TAB PO SCH (08:14)
--- NOTE | 2017-05-07 08:39 | P.PN ---
Subjective Principal diagnosis: Acute cholecystitis The patient is resting comfortably. Per the patient's daughter she is feeling more comfortable. Objective - Vital Signs Vital signs: Vital Signs Temp 98.8 F 05/07/17 07:00 Pulse 74 05/07/17 07:00 Resp 20 05/07/17 07:00 BP 134/60 05/07/17 07:00 Pulse Ox 96 05/07/17 07:00 Intake & Output 05/06/17 05/07/17 05/07/17 18:59 06:59 18:59 Intake Total 1080 350 Output Total 800 Balance 1080 -450 Weight 79 kg Intake: Intake, IV Titration 840 350 Amount Piperacillin-Tazobactam 3 100 .375 gm In Dextrose/Water 1 50ml.bag @ 12.5 mls/hr IVPB Q8HR [facility] Rx#: [id number] Sodium Chloride 0.9% 1, 840 000 ml @ 105 mls/hr IV . Q9H32M [facility] Rx#:[id number] Vancomycin 1,250 mg In 250 Sodium Chloride 0.9% 250 ml @ 125 mls/hr IVPB Q24H [facility] Rx#:[id number] Oral 240 Output: Urine 800 Uretheral ([place]) 800 Other: Voiding Method Bedpan Indwelling Catheter # Voids 1 - Constitutional General appearance: Present: average body habitus, cooperative - Gastrointestinal Gastrointestinal Comment(s): Kelvin is soft. There is mild right upper quadrant tenderness. There is no rebound or guarding. - Labs CBC & Chem 7: 05/06/17 07:25 05/06/17 07:25 Labs: Abnormal Lab Results - Last 24 Hours (Table) 05/07/17 Range/Units 02:40 Urine Ketones 1+ H (Negative) Microbiology - Last 24 Hours (Table) 05/04/17 18:59 Blood Culture - Preliminary Blood No Growth after 48 hours Assessment and Plan Plan: Acute and chronic cholestasis. Patient will continue IV antibiotics. The patient's daughter wishes to observe her mother with medical management.. The patient is improving. We will plan for outpatient cholecystectomy.
[2017-05-07 08:51] LABS: Aty Lym Flag Slight; CH 28.9; CHCM 32.5; HCT 27.3 % (34.0-46.0); HDW 2.94; HGB 9.2 gm/dL (11.4-16.0); MCH 30.2 pg (25.0-35.0); MCHC 33.8 g/dL (31.0-37.0); MCV 89.5 fL (80.0-100.0); Mean Platelet Volume 7.3; RBC 3.05 m/uL (3.80-5.40); RDW 13.7 % (11.5-15.5); WBC 5.2 k/uL (3.8-10.6); WBC (Perox) 5.54
[2017-05-07 09:24] LABS: Calcium 8.1 mg/dL (8.4-10.2); Total Bilirubin 1.7 mg/dL (0.2-1.3); Total Protein 4.4 g/dL (6.3-8.2)
[2017-05-07 10:30] LABS: Add Differential Manual Differential
[2017-05-07 10:34] LABS: Manual Review Performed; Nucleated Red Blood Cells 0 /100 WBC (0-0); Total Cells Counted 100
--- NOTE | 2017-05-07 10:52 | P.PN ---
Subjective Patient is an 86-year-old female presenting to the emergency department for drowsiness,weakness and fever. Patient went to bed last night and never got out of bed today. Patient has had similar symptoms previously associated with urinary tract infection. No cough. Family states there is a fever. Family requests pain medication for the patient stating she complained of her chronic pain. Patient is deaf and provides limited history. Patient was found to have evidence of acute cholecystitis. Started on IV antibiotics. Patient evaluated by Dr. Concepcion this time he recommends outpatient cholecystectomy. Patient had evidence of urinary retention Brumfield catheter inserted with 1000 ml out. Patient lying in bed comfortably. We will try to switch patient over to oral pain medications she takes Percocets at home. Total bili has decreased to 1.7. Objective - Vital Signs Vital signs: Vital Signs Temp 98.8 F 05/07/17 07:00 Pulse 74 05/07/17 07:00 Resp 20 05/07/17 07:00 BP 134/60 05/07/17 07:00 Pulse Ox 97 05/07/17 09:14 Intake & Output 05/06/17 05/07/17 05/07/17 18:59 06:59 18:59 Intake Total 1080 350 Output Total 800 Balance 1080 -450 Weight 79 kg Intake: Intake, IV Titration 840 350 Amount Piperacillin-Tazobactam 3 100 .375 gm In Dextrose/Water 1 50ml.bag @ 12.5 mls/hr IVPB Q8HR [facility] Rx#: [id number] Sodium Chloride 0.9% 1, 840 000 ml @ 105 mls/hr IV . Q9H32M [facility] Rx#:[id number] Vancomycin 1,250 mg In 250 Sodium Chloride 0.9% 250 ml @ 125 mls/hr IVPB Q24H [facility] Rx#:[id number] Oral 240 Output: Urine 800 Uretheral ([place]) 800 Other: Voiding Method Bedpan Indwelling Catheter # Voids 1 - Exam Head normocephalic Neck supple Lungs clear to auscultation bilaterally no wheezing or crackles Heart regular rate and rhythm S1-S2, no rub or gallop Abdomen is soft tender right upper quadrant epigastric area nondistended positive bowel sounds no hepatosplenomegaly Extremities no edema Neuro alert and orientated to 3 - Labs CBC & Chem 7: 05/07/17 08:12 05/07/17 08:12 Labs: Abnormal Lab Results - Last 24 Hours (Table) 05/07/17 05/07/17 05/07/17 Range/Units 02:40 08:12 08:12 RBC 3.05 L (3.80-5.40) m/uL Hgb 9.2 L (11.4-16.0) gm/dL Hct 27.3 L (34.0-46.0) % Chloride 112 H (98-107) mmol/L Creatinine 1.10 H (0.52-1.04) mg/dL Calcium 8.1 L (8.4-10.2) mg/dL Total Bilirubin 1.7 H (0.2-1.3) mg/dL Total Protein 4.4 L (6.3-8.2) g/dL Albumin 2.4 L (3.5-5.0) g/dL Urine Ketones 1+ H (Negative) Microbiology - Last 24 Hours (Table) 05/04/17 18:59 Blood Culture - Preliminary Blood No Growth after 48 hours Assessment and Plan Plan: 1. Acute cholecystitis: Continue with IV antibiotics. Patient seen by a surgeon. He recommends outpatient cholecystectomy. We'll change patient's IV Dilaudid to every 8 hours as needed for breakthrough pain only and will resume the Percocet 5/325 3 times a day when necessary 2. Altered mental status changes likely a metabolic encephalopathy due to her acute cholecystitis. computed tomography scan of the brain was done and revealed evidence of atrophy without any evidence of acute intracranial abnormality otherwise. Patient also evaluated by neurology #3 underlying history of hypertension well-controlled on current medications #4 underlying history of hypothyroidism maintained on Synthroid 25 g daily #5 underlying history of coronary artery disease with previous history of myocardial infarction stable at this time without any evidence of cardiac disease #6 patient is deaf she is able to communicate with reading questions and answering them #7 urinary retention Brumfield catheter inserted DVT prophylaxis SCDs and GI prophylaxis Protonix I performed an examination of the patient and discussed their management with the physician Motorized [employer] Sergeant. I have reviewed the Physician Motorized [employer] Sergeant's notes and agree with the documented findings and plan of care
--- NOTE | 2017-05-07 13:40 | XR ---
EXAMINATION TYPE: XR ankle complete LT DATE OF EXAM: 05/07/2017 COMPARISON: NONE HISTORY: Pain and swelling FINDINGS: Three views of the ankle demonstrate the ankle mortise to be intact and symmetric. The joint spaces are preserved. The osseous structures are intact. Diffuse osteopenia and soft tissue edema noted. IMPRESSION: 1. No definite acute fracture or dislocation, if symptoms persist follow-up study in 7 to 10 days wou ld be suggested. Diffuse soft tissue edema. Correlate for edema versus cellulitis.
[2017-05-07] MEDS: oxyCODONE-APAP 5-325MG 1 EACH TAB PO PRN (14:32)
[2017-05-07] MEDS: CHOLECALCIFEROL 1,000 UNIT TAB PO SCH (14:32)
[2017-05-07] MEDS ORDERED: oxyCODONE-APAP 5-325MG 1 EACH TAB PO SCH (16:00)
--- NOTE | 2017-05-07 17:46 | EEG ---
DATE OF SERVICE: 05/06/2017 INDICATION FOR EXAMINATION: This patient is an 86-year-old female being evaluated for altered mental status. AGE: 86. EEG FINDINGS: A routine 21-channel awake digital EEG recording was accomplished utilizing the 10-20 international system with bipolar and referential montages. The background activity in the most alert resting state consists of a low to medium amplitude, fairly well-developed and well-sustained 6 Hz activity over the posterior head regions. This posterior rhythm attenuates to eye opening. There is a small amount of low amplitude 18-20 Hz beta activity seen maximally over the anterior head regions. Muscle and movement artifact was observed on a few occasions during the tracing. Hyperventilation was not performed. Photic stimulation at flash frequencies of 2-30 Hz produced a minimal occipital driving response. No epileptiform discharges were seen. IMPRESSION: This EEG is moderately abnormal in diffuse fashion due to slowing of the EEG background. The EEG failed to reveal any focal, lateralized or epileptiform abnormalities. Clinical correlation is recommended.
[2017-05-07] MEDS: ATORVASTATIN 80 MG TAB PO SCH (21:00)
[2017-05-08] MEDS: PIPERACILLIN-TAZOBACTAM 3.375 GM in DEXTROSE/WATER 1 50ML.BAG IVPB SCH ×3 (00:53→16:40)
[2017-05-08] MEDS: oxyCODONE-APAP 5-325MG 1 EACH TAB PO PRN ×2 (05:36→13:43)
[2017-05-08] MEDS: SODIUM CHLORIDE 0.9% 1,000 ML IV SCH ×2 (05:43→05:46)
[2017-05-08] MEDS: LEVOTHYROXINE 25 MCG TAB PO SCH (06:22)
[2017-05-08 08:39] LABS: Aty Lym Flag Slight; CH 29.1; CHCM 32.4; HCT 26.8 % (34.0-46.0); HDW 2.87; HGB 8.6 gm/dL (11.4-16.0); MCV 90.4 fL (80.0-100.0); Mean Platelet Volume 7.9; RBC 2.96 m/uL (3.80-5.40); RDW 13.9 % (11.5-15.5); WBC 4.8 k/uL (3.8-10.6); WBC (Perox) 5.25
[2017-05-08 08:57] LABS: Calcium 8.1 mg/dL (8.4-10.2); Potassium 3.6 mmol/L (3.5-5.1); Total Bilirubin 1.2 mg/dL (0.2-1.3); Total Protein 4.6 g/dL (6.3-8.2)
--- NOTE | 2017-05-08 09:21 | P.PN ---
Progress Note - Text The patient still has complaints of right quadrant pain. The pain appears to be slightly less than yesterday. On exam her vital signs are stable. Her abdomen soft there is tenderness right quadrant. There is no rebound or guarding. Acute and chronic cholecystitis. The patient slowly improving. We will consider laparoscopic cholecystectomy on Wednesday if she is not improved.
[2017-05-08] MEDS: PREGABALIN 100 MG CAP PO SCH ×3 (09:29→21:29)
[2017-05-08] MEDS: ASPIRIN 81 MG CHEW PO SCH (09:31)
[2017-05-08] MEDS: METOPROLOL TARTRATE 12.5 MG TAB PO SCH ×2 (09:31→21:26)
[2017-05-08] MEDS: FUROSEMIDE 20 MG TAB PO SCH (09:31)
[2017-05-08] MEDS: PANTOPRAZOLE 40 MG TABLET PO SCH (09:31)
[2017-05-08] MEDS: LISINOPRIL 10 MG TAB PO SCH (09:32)
[2017-05-08 11:01] LABS: Add Differential Manual Differential
[2017-05-08 11:03] LABS: Manual Review Performed; Nucleated Red Blood Cells 0 /100 WBC (0-0); Total Cells Counted 100
[2017-05-08] MEDS: CHOLECALCIFEROL 1,000 UNIT TAB PO SCH (12:16)
--- NOTE | 2017-05-08 12:34 | P.PN ---
Subjective Patient is deaf. Communication was done with her via handwriting on the paper noted. Patient denies any significant abdominal pain. She finished her breakfast this morning with no difficulty. Objective - Vital Signs Vital signs: Vital Signs Temp 97.7 F 05/08/17 07:00 Pulse 63 05/08/17 09:33 Resp 18 05/08/17 08:00 BP 101/46 05/08/17 09:33 Pulse Ox 95 05/08/17 07:00 Intake & Output 05/07/17 05/08/17 05/08/17 18:59 06:59 18:59 Intake Total 770 900 Output Total 450 Balance 770 900 -450 Intake: IV 50 Piperacillin-Tazobactam 3 50 .375 gm In Dextrose/Water 1 50ml.bag @ 12.5 mls/hr IVPB Q8HR [facility] Rx#: [id number] Intake, IV Titration 50 Amount Piperacillin-Tazobactam 3 50 .375 gm In Dextrose/Water 1 50ml.bag @ 12.5 mls/hr IVPB Q8HR [facility] Rx#: [id number] Oral 720 850 Output: Urine 450 Other: Voiding Method Indwelling Catheter Indwelling Catheter Indwelling Catheter - Exam General: The patient is awake and alert, in no distress. Patient is legally deaf Eye: there is normal conjunctiva bilaterally. Neck: The neck is supple, there is no JVD. Cardiovascular: Normal S1-S2, no S3-S4, no murmurs. Respiratory: Lungs clear to auscultation bilaterally Gastrointestinal: Abdomen with moderate tenderness to palpation worse in the right upper quadrant Musculoskeletal: There is no pedal edema. Neurological:. Speech is normal. Skin: Skin is warm and dry - Labs CBC & Chem 7: 05/08/17 07:50 05/08/17 07:50 Labs: Abnormal Lab Results - Last 24 Hours (Table) 05/08/17 05/08/17 Range/Units 07:50 07:50 RBC 2.96 L (3.80-5.40) m/uL Hgb 8.6 L (11.4-16.0) gm/dL Hct 26.8 L (34.0-46.0) % Chloride 109 H (98-107) mmol/L Creatinine 1.25 H (0.52-1.04) mg/dL Glucose 109 H (74-99) mg/dL Calcium 8.1 L (8.4-10.2) mg/dL Total Protein 4.6 L (6.3-8.2) g/dL Albumin 2.3 L (3.5-5.0) g/dL Microbiology - Last 24 Hours (Table) 05/04/17 18:59 Blood Culture - Preliminary Blood No Growth after 72 hours Assessment and Plan Plan: 1. Acute cholecystitis: Continue with IV antibiotics. Patient seen by a surgeon. Now considering cholecystectomy on Wednesday. Pain is well controlled. 2. Altered mental status changes on presentation now resolved. likely a metabolic encephalopathy due to her acute cholecystitis. computed tomography scan of the brain was done and revealed evidence of atrophy without any evidence of acute intracranial abnormality otherwise. Patient also evaluated by neurology #3 underlying history of hypertension well-controlled on current medications #4 underlying history of hypothyroidism maintained on Synthroid 25 g daily #5 underlying history of coronary artery disease with previous history of myocardial infarction stable at this time without any evidence of cardiac disease #6 patient is deaf she is able to communicate with reading questions and answering them #7 urinary retention Brumfield catheter inserted DVT prophylaxis SCDs and GI prophylaxis Protonix Continue current regimen otherwise.
[2017-05-08] MEDS: HYDROmorphone 1 MG/ML 1 ML SYRINGE IVP PRN (14:50)
[2017-05-08] MEDS ORDERED: VANCOMYCIN TROUGH DUE 1 EACH MISC MISCELLANE ONE (20:00)
[2017-05-08] MEDS: ATORVASTATIN 80 MG TAB PO SCH (21:26)
[2017-05-09] MEDS: HYDROmorphone 1 MG/ML 1 ML SYRINGE IVP PRN ×3 (00:19→20:49)
[2017-05-09] MEDS: SODIUM CHLORIDE 0.9% 1,000 ML IV SCH ×4 (00:27→20:58)
[2017-05-09] MEDS: PIPERACILLIN-TAZOBACTAM 3.375 GM in DEXTROSE/WATER 1 50ML.BAG IVPB SCH ×4 (00:48→23:09)
[2017-05-09 07:26] LABS: Aty Lym Flag Slight; CH 28.8; CHCM 32.5; HCT 27.4 % (34.0-46.0); HDW 2.97; HGB 9.2 gm/dL (11.4-16.0); MCH 29.9 pg (25.0-35.0); MCHC 33.5 g/dL (31.0-37.0); MCV 89.2 fL (80.0-100.0); Mean Platelet Volume 7.3; RBC 3.08 m/uL (3.80-5.40); RDW 13.7 % (11.5-15.5); WBC (Perox) 5.35
[2017-05-09 07:44] LABS: Calcium 8.4 mg/dL (8.4-10.2); Potassium 3.5 mmol/L (3.5-5.1); Total Bilirubin 0.9 mg/dL (0.2-1.3); Total Protein 4.9 g/dL (6.3-8.2)
[2017-05-09] MEDS: LEVOTHYROXINE 25 MCG TAB PO SCH (08:35)
[2017-05-09] MEDS: FUROSEMIDE 20 MG TAB PO SCH (09:46)
[2017-05-09] MEDS: LISINOPRIL 10 MG TAB PO SCH (09:46)
[2017-05-09] MEDS: ASPIRIN 81 MG CHEW PO SCH (09:46)
[2017-05-09] MEDS: METOPROLOL TARTRATE 12.5 MG TAB PO SCH ×2 (09:46→20:51)
[2017-05-09] MEDS: PANTOPRAZOLE 40 MG TABLET PO SCH (09:47)
[2017-05-09] MEDS: PREGABALIN 100 MG CAP PO SCH ×3 (09:49→20:51)
[2017-05-09] MEDS: oxyCODONE-APAP 5-325MG 1 EACH TAB PO PRN ×2 (10:41→19:22)
[2017-05-09 11:49] LABS: Add Differential Manual Differential
[2017-05-09 11:52] LABS: Manual Review Performed; Nucleated Red Blood Cells 0 /100 WBC (0-0); Total Cells Counted 100
[2017-05-09] MEDS: CHOLECALCIFEROL 1,000 UNIT TAB PO SCH (11:52)
--- NOTE | 2017-05-09 12:39 | P.PN ---
Progress Note - Text The patient is resting comfortably in bed. She states her pain is improved. On exam her vital signs are stable. Her abdomen soft. There is minimal right upper quadrant tenderness. A lengthy discussion with the patient's daughter. I believe the patient should undergo laparoscopic cholecystectomy at some point. The patient's family is requesting Dr. Reid for surgery. Dr. Reid will see the patient in the a.m.
--- NOTE | 2017-05-09 14:00 | P.PN ---
Subjective Patient is doing fairly well today. Patient is deaf. Communication was done with her via handwriting on the paper note. Objective - Vital Signs Vital signs: Vital Signs Temp 96.8 F L 05/09/17 07:00 Pulse 69 05/09/17 07:00 Resp 20 05/09/17 08:00 BP 146/78 05/09/17 07:00 Pulse Ox 99 05/09/17 07:00 Intake & Output 05/08/17 05/09/17 05/09/17 18:59 06:59 18:59 Intake Total 410 160 Output Total 750 550 Balance -340 -390 Intake: IV 50 160 Piperacillin-Tazobactam 3 50 160 .375 gm In Dextrose/Water 1 50ml.bag @ 12.5 mls/hr IVPB Q8HR [facility] Rx#: [id number] Intake, IV Titration 160 Amount Sodium Chloride 0.9% 1, 160 000 ml @ 105 mls/hr IV . Q9H32M [facility] Rx#:[id number] Oral 200 Output: Urine 750 550 Uretheral ([place]) 550 Other: Voiding Method Indwelling Catheter Indwelling Catheter # Bowel Movements 1 - Exam General: The patient is awake and alert, in no distress. Patient is legally deaf Eye: there is normal conjunctiva bilaterally. Neck: The neck is supple, there is no JVD. Cardiovascular: Normal S1-S2, no S3-S4, no murmurs. Respiratory: Lungs clear to auscultation bilaterally Gastrointestinal: Abdomen with moderate tenderness to palpation worse in the right upper quadrant Musculoskeletal: There is no pedal edema. Neurological:. Speech is normal. Skin: Skin is warm and dry - Labs CBC & Chem 7: 05/09/17 06:36 05/09/17 06:36 Labs: Abnormal Lab Results - Last 24 Hours (Table) 05/09/17 05/09/17 Range/Units 06:36 06:36 RBC 3.08 L (3.80-5.40) m/uL Hgb 9.2 L (11.4-16.0) gm/dL Hct 27.4 L (34.0-46.0) % Sodium 146 H (137-145) mmol/L Chloride 111 H (98-107) mmol/L Creatinine 1.29 H (0.52-1.04) mg/dL Total Protein 4.9 L (6.3-8.2) g/dL Albumin 2.4 L (3.5-5.0) g/dL Microbiology - Last 24 Hours (Table) 05/04/17 18:59 Blood Culture - Preliminary Blood No Growth after 96 hours Assessment and Plan Plan: 1. Acute cholecystitis: Continue with IV antibiotics. Patient seen by a surgeon. Now considering cholecystectomy on Wednesday. Pain is well controlled. 2. Altered mental status changes on presentation now resolved. likely a metabolic encephalopathy due to her acute cholecystitis. computed tomography scan of the brain was done and revealed evidence of atrophy without any evidence of acute intracranial abnormality otherwise. Patient also evaluated by neurology #3 underlying history of hypertension well-controlled on current medications #4 underlying history of hypothyroidism maintained on Synthroid 25 g daily #5 underlying history of coronary artery disease with previous history of myocardial infarction stable at this time without any evidence of cardiac disease #6 patient is deaf she is able to communicate with reading questions and answering them #7 urinary retention Brumfield catheter inserted DVT prophylaxis SCDs and GI prophylaxis Protonix Continue current regimen otherwise.
[2017-05-09] MEDS: ATORVASTATIN 80 MG TAB PO SCH (20:51)
[2017-05-10] MEDS: HYDROmorphone 1 MG/ML 1 ML SYRINGE IVP PRN ×3 (04:10→20:59)
[2017-05-10] MEDS: SODIUM CHLORIDE 0.9% 1,000 ML IV SCH ×3 (05:30→12:49)
[2017-05-10] MEDS: LEVOTHYROXINE 25 MCG TAB PO SCH (06:00)
[2017-05-10 06:54] LABS: Aty Lym Flag Slight; CH 28.8; CHCM 32.4; HCT 25.1 % (34.0-46.0); HDW 2.97; HGB 8.5 gm/dL (11.4-16.0); MCH 30.4 pg (25.0-35.0); MCHC 33.9 g/dL (31.0-37.0); MCV 89.5 fL (80.0-100.0); Mean Platelet Volume 7.4; RDW 13.6 % (11.5-15.5); WBC 4.1 k/uL (3.8-10.6); WBC (Perox) 4.39
[2017-05-10 07:15] LABS: Calcium 8.3 mg/dL (8.4-10.2); Potassium 3.6 mmol/L (3.5-5.1); Total Bilirubin 0.6 mg/dL (0.2-1.3); Total Protein 4.4 g/dL (6.3-8.2)
[2017-05-10] MEDS: oxyCODONE-APAP 5-325MG 1 EACH TAB PO PRN ×2 (08:18→16:10)
[2017-05-10] MEDS: PANTOPRAZOLE 40 MG TABLET PO SCH (08:19)
[2017-05-10] MEDS: ASPIRIN 81 MG CHEW PO SCH (08:20)
[2017-05-10] MEDS: LISINOPRIL 10 MG TAB PO SCH (08:20)
[2017-05-10] MEDS: FUROSEMIDE 20 MG TAB PO SCH (08:20)
[2017-05-10] MEDS: METOPROLOL TARTRATE 12.5 MG TAB PO SCH ×2 (08:21→21:09)
[2017-05-10] MEDS: PREGABALIN 100 MG CAP PO SCH ×3 (08:32→21:10)
[2017-05-10] MEDS: PIPERACILLIN-TAZOBACTAM 3.375 GM in DEXTROSE/WATER 1 50ML.BAG IVPB SCH ×2 (09:28→16:09)
[2017-05-10 10:39] LABS: Add Differential Manual Differential
[2017-05-10 10:49] LABS: Nucleated Red Blood Cells 0 /100 WBC (0-0); Total Cells Counted 100
--- NOTE | 2017-05-10 12:23 | P.PN ---
Subjective Patient is an 86-year-old female presenting to the emergency department for drowsiness,weakness and fever. Patient went to bed last night and never got out of bed today. Patient has had similar symptoms previously associated with urinary tract infection. No cough. Family states there is a fever. Family requests pain medication for the patient stating she complained of her chronic pain. Patient is deaf and provides limited history. Patient was found to have evidence of acute cholecystitis. Started on IV antibiotics. Patient evaluated by Dr. Concepcion this time he recommends outpatient cholecystectomy. Patient had evidence of urinary retention Brumfield catheter inserted with 1000 ml out. Patient lying in bed comfortably. We will try to switch patient over to oral pain medications she takes Percocets at home. Total bili has decreased to 1.7. 05/10/2017 patient lying in bed comfortably. Still has abdominal pain with palpation. Awaiting surgical recommendations about possible laps, cholecystectomy. Objective - Vital Signs Vital signs: Vital Signs Temp 97.3 F L 05/10/17 07:00 Pulse 62 05/10/17 07:00 Resp 16 05/10/17 07:00 BP 136/71 05/10/17 07:00 Pulse Ox 100 05/10/17 07:00 Intake & Output 05/09/17 05/10/17 05/10/17 18:59 06:59 18:59 Intake Total 210 50 Output Total 0 Balance 210 50 0 Weight 79 kg Intake: IV 50 50 Piperacillin-Tazobactam 3 50 50 .375 gm In Dextrose/Water 1 50ml.bag @ 12.5 mls/hr IVPB Q8HR [facility] Rx#: [id number] Intake, IV Titration 160 Amount Sodium Chloride 0.9% 1, 160 000 ml @ 105 mls/hr IV . Q9H32M [facility] Rx#:[id number] Output: Urine 0 Uretheral (Brumfield) 0 Other: Voiding Method Indwelling Catheter Indwelling Catheter Indwelling Catheter # Voids 0 # Bowel Movements 1 1 - Exam Head normocephalic Neck supple Lungs clear to auscultation bilaterally no wheezing or crackles Heart regular rate and rhythm S1-S2, no rub or gallop Abdomen is soft tender right upper quadrant epigastric area nondistended positive bowel sounds no hepatosplenomegaly Extremities no edema Neuro alert and orientated to 3 - Labs CBC & Chem 7: 05/10/17 06:34 05/10/17 06:34 Labs: Abnormal Lab Results - Last 24 Hours (Table) 05/10/17 05/10/17 Range/Units 06:34 06:34 RBC 2.80 L (3.80-5.40) m/uL Hgb 8.5 L (11.4-16.0) gm/dL Hct 25.1 L (34.0-46.0) % Chloride 111 H (98-107) mmol/L Creatinine 1.27 H (0.52-1.04) mg/dL Calcium 8.3 L (8.4-10.2) mg/dL Total Protein 4.4 L (6.3-8.2) g/dL Albumin 2.2 L (3.5-5.0) g/dL Microbiology - Last 24 Hours (Table) 05/04/17 18:59 Blood Culture - Preliminary Blood No Growth after 120 hours Assessment and Plan Plan: 1. Acute cholecystitis: Continue with IV antibiotics. Awaiting Dr. Reid's recommendations about possible cholecystectomy 2. Altered mental status changes likely a metabolic encephalopathy due to her acute cholecystitis. computed tomography scan of the brain was done and revealed evidence of atrophy without any evidence of acute intracranial abnormality otherwise. Patient also evaluated by neurology #3 underlying history of hypertension well-controlled on current medications #4 underlying history of hypothyroidism maintained on Synthroid 25 g daily #5 underlying history of coronary artery disease with previous history of myocardial infarction stable at this time without any evidence of cardiac disease #6 patient is deaf she is able to communicate with reading questions and answering them #7 urinary retention Brumfield catheter inserted #8 anemia: hemoglobin 8.5. Check iron studies #9 acute kidney injury: Place normal saline at 50 mL an hour. If kidney functions continue to worsen then we'll need to hold the Lasix and VIK inhibitor. At this time creatinine has decreased to 1.27 Continue physical therapy DVT prophylaxis SCDs and GI prophylaxis Protonix I performed an examination of the patient and discussed their management with the physician Ore Crusher. I have reviewed the Physician Ore Crusher's notes and agree with the documented findings and plan of care
[2017-05-10 12:48] LABS: % Iron Saturation 10.8 % (20-50)
[2017-05-10] MEDS: CHOLECALCIFEROL 1,000 UNIT TAB PO SCH (12:48)
[2017-05-10] MEDS ORDERED: RX INFO: IV CONTRAST WAS GIVEN 1 EACH MISC MISCELLANE PRN (17:52)
[2017-05-10] MEDS: IOHEXOL 350 MG/ML 25 ML BOTTLE (ORAL USE) PO PRN ×2 (18:03→18:59)
--- NOTE | 2017-05-10 20:29 | CT ---
EXAMINATION TYPE: CT abdomen pelvis wo con DATE OF EXAM: 05/10/2017 COMPARISON: 01/22/2016 HISTORY: ABDOMINAL PAIN. CT DLP: 1177.6 mGycm Automated exposure control for dose reduction was used. TECHNIQUE: Helical acquisition of images was performed from the lung bases through the pelvis. FINDINGS: There are bilateral pleural effusions. Heart is probably enlarged. There is some infiltrate and atele ctasis at the right lung base. There are small calcified cyst granulomata in the liver and spleen. There is no sign of a pancreatic mass. There are probably some gallstones in the gallbladder fundus. Bile ducts are not dilated. There is no adrenal mass. Kidneys show no hydronephrosis. There is no retroperitoneal adenopathy. Abdomina l aorta is atheromatous. There is no sign of a bowel obstruction. I see no intestinal wall thickening . There are multiple diverticula in the sigmoid colon. There is no evidence of diverticulitis. Bladde r is empty. There is a Brumfield catheter in the urinary bladder. There is a right hip prosthesis. There is no sign of a pelvic mass. There is a thoracolumbar levoscoliosis. There is 1 cm subluxation of L4 anterior to L5. 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 THERE ARE BILATER AL PLEURAL EFFUSIONS WITH RIGHT BASILAR ATELECTASIS. PROBABLE SMALL GALLSTONES. HEALED GRANULOMATOUS DISEASE. DIVERTICULOSIS WITHOUT SIGN OF DIVERTICULITIS. PLEURAL FLUID AND CHANGES APPEAR IMPROVED ON THE LEFT SIDE BUT WORSE ON THE RIGHT SIDE COMPARED TO OL D CT SCAN.
[2017-05-10] MEDS: ATORVASTATIN 80 MG TAB PO SCH (21:09)
--- NOTE | 2017-05-10 22:50 | P.PN ---
Subjective Principal diagnosis: Cholecystitis Patient seen over the weekend by Dr. Garcia. The patient has a presentation of fever and lethargy and some abdominal tenderness. Ultrasound suggests possible cholecystitis. Patient still having some abdominal discomfort. Patient is deaf and is difficult to communicate with. No nausea or vomiting. Tolerating diet currently. Bilirubin slightly elevated previously during the hospitalization. No additional fevers at this time. Blood and urinary cultures remain negative. Objective - Vital Signs Vital signs: Vital Signs Temp 97.0 F L 05/10/17 15:00 Pulse 64 05/10/17 15:41 Resp 16 05/10/17 15:41 BP 128/59 05/10/17 15:00 Pulse Ox 96 05/10/17 15:00 Intake & Output 05/10/17 05/10/17 05/11/17 06:59 18:59 06:59 Intake Total 50 1000 240 Output Total 0 Balance 50 1000 240 Weight 79 kg Intake: IV 50 50 Piperacillin-Tazobactam 3 50 50 .375 gm In Dextrose/Water 1 50ml.bag @ 12.5 mls/hr IVPB Q8HR [facility] Rx#: [id number] Intake, IV Titration 250 Amount Sodium Chloride 0.9% 1, 250 000 ml @ 50 mls/hr IV . Q20H [facility] Rx#:[id number] Oral 700 240 Output: Urine 0 Uretheral (Brumfield) 0 Other: Voiding Method Indwelling Catheter Indwelling Catheter # Voids 0 # Bowel Movements 1 1 1 - Exam Abdomen: Soft, mild upper abdominal tenderness, no palpable mass, nondistended - Labs CBC & Chem 7: 05/10/17 06:34 05/10/17 06:34 Labs: Abnormal Lab Results - Last 24 Hours (Table) 05/10/17 05/10/17 05/10/17 Range/Units 06:34 06:34 06:34 RBC 2.80 L (3.80-5.40) m/uL Hgb 8.5 L (11.4-16.0) gm/dL Hct 25.1 L (34.0-46.0) % Chloride 111 H (98-107) mmol/L Creatinine 1.27 H (0.52-1.04) mg/dL Calcium 8.3 L (8.4-10.2) mg/dL Iron 23 L (37-170) ug/dL TIBC 213 L (265-497) ug/dL % Saturation 10.8 L (20-50) % Total Protein 4.4 L (6.3-8.2) g/dL Albumin 2.2 L (3.5-5.0) g/dL Microbiology - Last 24 Hours (Table) 05/04/17 18:59 Blood Culture - Final Blood No Growth after 144 hours Assessment and Plan (1) Cholelithiasis with acute cholecystitis Narrative/Plan: Clinical scenario discussed in detail with the patient's 2 daughters in herself. We have agreed to order a CAT scan of the abdomen and pelvis at this time to better evaluate for other potential explanations for her fevers lethargy and pain. Assuming no other abnormalities were identified will strongly consider Cholecystectomy. Risks of bleeding, infection, biloma formation, bile duct injury, conversion to an open procedure, cardiac and respiratory failure were discussed. They understand and Mister proceed pending the CAT scan findings. Status: Acute
[2017-05-11] MEDS: PIPERACILLIN-TAZOBACTAM 3.375 GM in DEXTROSE/WATER 1 50ML.BAG IVPB SCH ×3 (00:02→19:40)
[2017-05-11] MEDS: oxyCODONE-APAP 5-325MG 1 EACH TAB PO PRN (02:40)
[2017-05-11] MEDS: LEVOTHYROXINE 25 MCG TAB PO SCH (06:23)
[2017-05-11] MEDS: HYDROmorphone 1 MG/ML 1 ML SYRINGE IVP PRN ×3 (06:24→22:53)
[2017-05-11 07:55] LABS: Calcium 8.1 mg/dL (8.4-10.2); Potassium 3.2 mmol/L (3.5-5.1); Total Bilirubin 0.9 mg/dL (0.2-1.3); Total Protein 4.9 g/dL (6.3-8.2)
[2017-05-11 08:04] LABS: Basophils % (A) 0 %; CH 29.1; CHCM 33.2; Eosinophils # (A) 0.3 k/uL (0-0.7); Eosinophils % (A) 6 %; HCT 28.1 % (34.0-46.0); HDW 2.95; HGB 9.2 gm/dL (11.4-16.0); Luc # (Auto) 0.22; Luc % (Auto) 4; Lymphocytes # (A) 1.5 k/uL (1.0-4.8); Lymphocytes % (A) 30 %; MCH 28.9 pg (25.0-35.0); MCHC 32.7 g/dL (31.0-37.0); MCV 88.3 fL (80.0-100.0); Mean Platelet Volume 7.5; Monocytes # (A) 0.4 k/uL (0-1.0); Monocytes % (A) 8 %; Neutrophils # (A) 2.7 k/uL (1.3-7.7); Neutrophils % (A) 52 %; RBC 3.19 m/uL (3.80-5.40); RDW 13.7 % (11.5-15.5); WBC 5.1 k/uL (3.8-10.6); WBC (Perox) 5.07
[2017-05-11] MEDS: SODIUM CHLORIDE 0.9% 1,000 ML IV SCH (09:00)
[2017-05-11] MEDS: PREGABALIN 100 MG CAP PO SCH ×3 (09:35→22:05)
[2017-05-11] MEDS ORDERED: Potassium Replacement Protocol 1 EACH MISC MISCELLANE PRN ×2 (09:47→19:15)
[2017-05-11] MEDS: METOPROLOL TARTRATE 12.5 MG TAB PO SCH ×2 (10:46→21:59)
[2017-05-11] MEDS: POTASSIUM CHLORIDE 10 MEQ, LIDOCAINE 2% INJ 10 MG in SODIUM CHLORIDE 0.9% 100 ML IV SCH ×4 (11:10→21:59)
[2017-05-11] MEDS: ASPIRIN 81 MG CHEW PO SCH (14:18)
[2017-05-11] MEDS: PANTOPRAZOLE 40 MG TABLET PO SCH (14:18)
[2017-05-11] MEDS: CHOLECALCIFEROL 1,000 UNIT TAB PO SCH (14:19)
[2017-05-11] MEDS: FUROSEMIDE 20 MG TAB PO SCH (16:00)
[2017-05-11] MEDS: LISINOPRIL 10 MG TAB PO SCH (16:00)
[2017-05-11] MEDS ORDERED: IV FLUID CONTINUATION 1,000 ML IV ONE (16:32)
[2017-05-11] MEDS ORDERED: BUPIVACAIN-EPI 0.5%-1:200,000 30 ML VIAL SQ ONE ×2 (16:43→17:27)
[2017-05-11] MEDS ORDERED: HEPARIN SODIUM,PORCINE 5,000 UNIT/ML 1 ML VIAL SQ ONE (16:49)
[2017-05-11] MEDS ORDERED: DEXAMETHASONE SOD PHOS (MDV) 100 MG/10 ML VIAL IV ONE (16:49)
[2017-05-11] MEDS: ONDANSETRON 4 MG/2 ML VIAL IVP PRN (16:49)
[2017-05-11] MEDS ORDERED: LACTATED RINGERS 1,000 ML IV ONE (17:02)
[2017-05-11] MEDS ORDERED: LIDOCAINE 1% INJ 10MG/ML (20 ML MDV) ONE (17:06)
[2017-05-11] MEDS ORDERED: fentaNYL (PF) 50 MCG/ML 2 ML AMP ONE (17:06)
[2017-05-11] MEDS ORDERED: NEOSTIGMINE 1 MG/ML 10 ML VIAL ONE (17:06)
[2017-05-11] MEDS ORDERED: GLYCOPYRROLATE 0.2 MG/ML 2 ML VIAL ONE (17:06)
[2017-05-11] MEDS ORDERED: ROCURONIUM BROMIDE 10 MG/ML 10 ML VIAL IV ONE (17:06)
[2017-05-11] MEDS ORDERED: SUCCINYLCHOLINE CHLORIDE 100 MG/5 ML SYR IV ONE (17:06)
[2017-05-11] MEDS ORDERED: PROPOFOL 10 MG/ML 20 ML VIAL IV ONE (17:06)
[2017-05-11] MEDS ORDERED: ePHEDrine 50 MG/ML 1 ML AMP ONE (17:06)
[2017-05-11] MEDS ORDERED: SODIUM CHLORIDE 0.9% 100 ML with ceFAZolin 2,000 MG IV ONE ×2 (17:26)
--- NOTE | 2017-05-11 18:05 | P.PN ---
Subjective Patient is an 86-year-old female presenting to the emergency department for drowsiness,weakness and fever. Patient went to bed last night and never got out of bed today. Patient has had similar symptoms previously associated with urinary tract infection. No cough. Family states there is a fever. Family requests pain medication for the patient stating she complained of her chronic pain. Patient is deaf and provides limited history. Patient was found to have evidence of acute cholecystitis. Started on IV antibiotics. Patient evaluated by Dr. Concepcion this time he recommends outpatient cholecystectomy. Patient had evidence of urinary retention Brumfield catheter inserted with 1000 ml out. Patient lying in bed comfortably. We will try to switch patient over to oral pain medications she takes Percocets at home. Total bili has decreased to 1.7. 05/10/2017 patient lying in bed comfortably. Still has abdominal pain with palpation. Awaiting surgical recommendations about possible laps, cholecystectomy. Objective - Vital Signs Vital signs: Vital Signs Temp 98.2 F 05/11/17 16:25 Pulse 77 05/11/17 16:40 Resp 16 05/11/17 16:40 BP 146/83 05/11/17 16:40 Pulse Ox 96 05/11/17 16:40 Intake & Output 05/10/17 05/11/17 05/11/17 18:59 06:59 18:59 Intake Total 1000 480 270 Output Total 0 1450 450 Balance 1000 -970 -180 Weight 79 kg 79 kg Intake: IV 50 150 Piperacillin-Tazobactam 3 50 .375 gm In Dextrose/Water 1 50ml.bag @ 12.5 mls/hr IVPB Q8HR [facility] Rx#: [id number] Intake, IV Titration 250 Amount Sodium Chloride 0.9% 1, 250 000 ml @ 50 mls/hr IV . Q20H [facility] Rx#:[id number] Oral 700 480 120 Output: Urine 0 1450 450 Uretheral (Brumfield) 0 1450 Other: Voiding Method Indwelling Catheter Indwelling Catheter Indwelling Catheter # Voids 0 2 # Bowel Movements 1 1 - Exam In general patient is alert and oriented 3 in no apparent distress HEENT head normocephalic and atraumatic Neck is supple no JVD no goiter no lymphadenopathy Chest exam reveals a few scattered crackles in both lung dal[place] no wheezing Cardiac exam reveals regular heart sounds S1 and S2 no gallops no murmurs Abdomen is soft nontender no organomegaly Extremity exam reveals minimal edema no cyanosis or clubbing - Labs CBC & Chem 7: 05/11/17 06:59 05/11/17 15:22 Labs: Abnormal Lab Results - Last 24 Hours (Table) 05/11/17 05/11/17 Range/Units 06:59 06:59 RBC 3.19 L (3.80-5.40) m/uL Hgb 9.2 L (11.4-16.0) gm/dL Hct 28.1 L (34.0-46.0) % Potassium 3.2 L (3.5-5.1) mmol/L Creatinine 1.13 H (0.52-1.04) mg/dL Calcium 8.1 L (8.4-10.2) mg/dL Total Protein 4.9 L (6.3-8.2) g/dL Albumin 2.5 L (3.5-5.0) g/dL Microbiology - Last 24 Hours (Table) 05/04/17 18:59 Blood Culture - Final Blood No Growth after 144 hours Assessment and Plan Plan: #1 febrile illness, cause initially unclear, urine did not reveal any evidence of infection, chest x-ray did not reveal any acute abnormality, case was discussed was ER physician and I have asked him to proceed with abdomen ultrasound, this was done later end revealed evidence of dilated gallbladder with gallstones with evidence of cholecystitis, consultation for Dr. soliz was initiated. patient is scheduled for cholecystectomy today. #2 mental status changes on presentation, computed tomography scan of the brain was done and revealed evidence of atrophy without any evidence of acute intracranial abnormality otherwise. #3 underlying history of hypertension well-controlled on current medications #4 underlying history of hypothyroidism maintained on Synthroid 25 g daily #5 underlying history of coronary artery disease with previous history of myocardial infarction stable at this time without any evidence of cardiac disease #6 patient is deaf she is able to communicate with reading questions and answering them At this time continue with current management with IV antibiotic awaiting surgery input will follow closely
[2017-05-11] MEDS ORDERED: HYDROcodone/APAP 5-325MG 1 EACH TAB PO PRN (18:08)
--- NOTE | 2017-05-11 18:12 | P.OP ---
Date of Procedure: 05/11/17 Preoperative Diagnosis: Postoperative Diagnosis: Procedure(s) Performed: PREOPERATIVE DIAGNOSIS: Acute cholecystitis POSTOPERATIVE DIAGNOSIS: Same PROCEDURE: Laparoscopic cholecystectomy SURGEON: Jeanette EBL: Minimal see anesthesia record ANESTHESIA: Gen. COMPLICATIONS: None OPERATIVE PROCEDURE: The patient was brought and placed on the operating room table in the supine position. The patient was placed under general anesthesia at that time. The abdomen was prepped and draped in the usual sterile fashion. A small vertical supraumbilical incision was made. The fascia was grasped with the Salvador forceps. The fascia was retracted anteriorly. The Veress needle was advanced into the peritoneal cavity. The saline drop test was normal. Insufflation took place up to 15 mmHg. A 5 mm optical trocar was advanced and the peritoneal cavity. 2 additional 5 mm trochars were placed in the right upper quadrant under direct visualization. A 10 mm trocar was advanced into the epigastric incision site. The gallbladder was distended some inflammatory changes of the wall. No gangrene was noted. The gallbladder was retracted superiorly and laterally. The peritoneum overlying the infundibulum was bluntly dissected. The patient's cystic duct was visualized. The junction between the cystic duct common and hepatic duct was identified. The cystic duct was then divided after placement of 3 10 mm clips on the patient's side and one on the specimen side. The cystic artery was identified and clipped as well. A small vessel was seen along the gallbladder fossa and clipped as well. The gallbladder was then removed from the liver bed using electrocautery. The gallbladder was then removed from the epigastric trocar site with an Endo Catch bag. The gallbladder fossa was irrigated with saline. There was no evidence of any bleeding or biliary drainage seen. The trochars were then removed. The fascia at the 10 millimeter site was closed using a Theron- Benjamin 0 Vicryl stitch. The skin at all 4 sites was closed using a 4-0 Monocryl stitch. At the end of this procedure the sponge and needle counts were correct. DISPOSITION: Stable to the recovery room Implants: Indications for Procedure: Operative Findings: Description of Procedure:
[2017-05-11] MEDS: HYDROmorphone 1 MG/ML 1 ML SYRINGE IVP ONE ×4 (18:31→19:10)
[2017-05-11] MEDS: ATORVASTATIN 80 MG TAB PO SCH (21:59)
[2017-05-12] MEDS: PIPERACILLIN-TAZOBACTAM 3.375 GM in DEXTROSE/WATER 1 50ML.BAG IVPB SCH ×2 (00:27→08:19)
[2017-05-12] MEDS: SODIUM CHLORIDE 0.9% 1,000 ML IV SCH (05:46)
[2017-05-12] MEDS: HYDROmorphone 1 MG/ML 1 ML SYRINGE IVP PRN (05:47)
[2017-05-12] MEDS: LEVOTHYROXINE 25 MCG TAB PO SCH (06:03)
[2017-05-12 07:16] LABS: Basophils % (A) 0 %; CH 29.1; CHCM 33.6; Eosinophils % (A) 0 %; HCT 26.8 % (34.0-46.0); HDW 2.97; HGB 8.8 gm/dL (11.4-16.0); Luc # (Auto) 0.06; Luc % (Auto) 1; Lymphocytes # (A) 0.7 k/uL (1.0-4.8); Lymphocytes % (A) 17 %; MCH 28.6 pg (25.0-35.0); MCHC 32.9 g/dL (31.0-37.0); MCV 87.1 fL (80.0-100.0); Mean Platelet Volume 7.7; Monocytes # (A) 0.3 k/uL (0-1.0); Monocytes % (A) 6 %; Neutrophils # (A) 3.3 k/uL (1.3-7.7); Neutrophils % (A) 76 %; RBC 3.07 m/uL (3.80-5.40); RDW 13.4 % (11.5-15.5); WBC 4.3 k/uL (3.8-10.6); WBC (Perox) 4.42
[2017-05-12 07:36] LABS: ALT 30 U/L (9-52); AST 36 U/L (14-36); Alkaline Phosphatase 86 U/L (38-126); Anion Gap 7 mmol/L; Blood Urea Nitrogen 10 mg/dL (7-17); Calcium 7.8 mg/dL (8.4-10.2); Carbon Dioxide 26 mmol/L (22-30); Chloride 108 mmol/L (98-107); Glucose 153 mg/dL (74-99); Non-African American GFR(MDRD) 54 (>60 ml/min/1.73 sqM); Potassium 3.8 mmol/L (3.5-5.1); Sodium 141 mmol/L (137-145); Total Bilirubin 0.6 mg/dL (0.2-1.3)
[2017-05-12] MEDS: oxyCODONE-APAP 5-325MG 1 EACH TAB PO PRN ×2 (08:08→16:58)
[2017-05-12] MEDS: FUROSEMIDE 20 MG TAB PO SCH (08:09)
[2017-05-12] MEDS: LISINOPRIL 10 MG TAB PO SCH (08:09)
[2017-05-12] MEDS: ASPIRIN 81 MG CHEW PO SCH (08:09)
[2017-05-12] MEDS: PANTOPRAZOLE 40 MG TABLET PO SCH (08:10)
[2017-05-12] MEDS: METOPROLOL TARTRATE 12.5 MG TAB PO SCH (08:10)
[2017-05-12] MEDS: CHOLECALCIFEROL 1,000 UNIT TAB PO SCH (08:11)
[2017-05-12] MEDS: PREGABALIN 100 MG CAP PO SCH (08:15)
[2017-05-12 08:17] VITALS: RESP 16; TEMP 97
--- NOTE | 2017-05-12 09:32 | P.PN ---
Subjective Principal diagnosis: Cholecystitis Patient seems to be doing well today. Complaining of mild pain. Tolerating her clear liquids thus far. She states that she does not want to eat more because of concern regarding diarrhea that was occurring preoperatively. Comp appears normal. Objective - Vital Signs Vital signs: Vital Signs Temp 97 F L 05/12/17 07:00 Pulse 72 05/12/17 08:00 Resp 16 05/12/17 08:00 BP 123/56 05/12/17 07:00 Pulse Ox 94 L 05/12/17 07:00 Intake & Output 05/11/17 05/12/17 05/12/17 18:59 06:59 18:59 Intake Total 920 350 Output Total 505 300 300 Balance 415 50 -300 Weight 79 kg 79 kg Intake: IV 800 150 Piperacillin-Tazobactam 3 50 .375 gm In Dextrose/Water 1 50ml.bag @ 12.5 mls/hr IVPB Q8HR [facility] Rx#: [id number] Potassium Chloride 10 meq 100 Lidocaine 2% Inj 10 mg In Sodium Chloride 0.9% 100 ml @ 100 mls/hr IV Q1HR [facility] Rx#:[id number] Intake, IV Titration 200 Amount Sodium Chloride 0.9% 1, 200 000 ml @ 50 mls/hr IV . Q20H [facility] Rx#:[id number] Oral 120 Output: Urine 500 300 300 Estimated Blood Loss 5 Other: Voiding Method Indwelling Catheter Indwelling Catheter Indwelling Catheter # Voids 2 2 - Exam Abdomen: Soft, nondistended, mild tenderness, dressings clean and dry - Labs CBC & Chem 7: 05/12/17 06:45 05/12/17 06:45 Labs: Abnormal Lab Results - Last 24 Hours (Table) 05/12/17 05/12/17 Range/Units 06:45 06:45 RBC 3.07 L (3.80-5.40) m/uL Hgb 8.8 L (11.4-16.0) gm/dL Hct 26.8 L (34.0-46.0) % Lymphocytes # 0.7 L (1.0-4.8) k/uL Chloride 108 H (98-107) mmol/L Glucose 153 H (74-99) mg/dL Calcium 7.8 L (8.4-10.2) mg/dL Total Protein 5.0 L (6.3-8.2) g/dL Albumin 2.6 L (3.5-5.0) g/dL Assessment and Plan (1) Cholelithiasis with acute cholecystitis Narrative/Plan: Gradually increase activity level and diet. Discharge her primary service. Status: Acute
--- NOTE | 2017-05-12 10:49 | P.PN ---
Subjective Patient is an 86-year-old female presenting to the emergency department for drowsiness,weakness and fever. Patient went to bed last night and never got out of bed today. Patient has had similar symptoms previously associated with urinary tract infection. No cough. Patient is deaf and provides limited history. Patient was found to have evidence of acute cholecystitis. Started on IV antibiotics. Patient evaluated by Dr. Concepcion this time he recommends outpatient cholecystectomy. Patient had evidence of urinary retention Brumfield catheter inserted with 1000 ml out. Patient lying in bed comfortably. We will try to switch patient over to oral pain medications she takes Percocets at home. Total bili has decreased to 1.7. 05/10/2017 patient lying in bed comfortably. Still has abdominal pain with palpation. Awaiting surgical recommendations about possible laps, cholecystectomy. On 05/12/2017 patient seen and examined she is doing fairly well post cholecystectomy At this time will consult physical therapy and occupational therapy, advance diet gradually possible discharge to home in the next 1-2 days Objective - Vital Signs Vital signs: Vital Signs Temp 97 F L 05/12/17 07:00 Pulse 72 05/12/17 08:00 Resp 16 05/12/17 08:00 BP 123/56 05/12/17 07:00 Pulse Ox 94 L 05/12/17 07:00 Intake & Output 05/11/17 05/12/17 05/12/17 18:59 06:59 18:59 Intake Total 920 350 Output Total 505 300 300 Balance 415 50 -300 Weight 79 kg 79 kg Intake: IV 800 150 Piperacillin-Tazobactam 3 50 .375 gm In Dextrose/Water 1 50ml.bag @ 12.5 mls/hr IVPB Q8HR [facility] Rx#: [id number] Potassium Chloride 10 meq 100 Lidocaine 2% Inj 10 mg In Sodium Chloride 0.9% 100 ml @ 100 mls/hr IV Q1HR [facility] Rx#:[id number] Intake, IV Titration 200 Amount Sodium Chloride 0.9% 1, 200 000 ml @ 50 mls/hr IV . Q20H [facility] Rx#:[id number] Oral 120 Output: Urine 500 300 300 Estimated Blood Loss 5 Other: Voiding Method Indwelling Catheter Indwelling Catheter Indwelling Catheter # Voids 2 2 - Exam In general patient is alert and oriented 3 in no apparent distress HEENT head normocephalic and atraumatic Neck is supple no JVD no goiter no lymphadenopathy Chest exam reveals a few scattered crackles in both lung [place] no wheezing Cardiac exam reveals regular heart sounds S1 and S2 no gallops no murmurs Abdomen is soft nontender no organomegaly Extremity exam reveals minimal edema no cyanosis or clubbing - Labs CBC & Chem 7: 05/12/17 06:45 05/12/17 06:45 Labs: Abnormal Lab Results - Last 24 Hours (Table) 05/12/17 05/12/17 Range/Units 06:45 06:45 RBC 3.07 L (3.80-5.40) m/uL Hgb 8.8 L (11.4-16.0) gm/dL Hct 26.8 L (34.0-46.0) % Lymphocytes # 0.7 L (1.0-4.8) k/uL Chloride 108 H (98-107) mmol/L Glucose 153 H (74-99) mg/dL Calcium 7.8 L (8.4-10.2) mg/dL Total Protein 5.0 L (6.3-8.2) g/dL Albumin 2.6 L (3.5-5.0) g/dL Assessment and Plan Plan: #1 febrile illness, cause initially unclear, urine did not reveal any evidence of infection, chest x-ray did not reveal any acute abnormality, case was discussed was ER physician and I have asked him to proceed with abdomen ultrasound, this was done later end revealed evidence of dilated gallbladder with gallstones with evidence of cholecystitis, consultation for Dr. soliz was initiated. patient had cholecystectomy yesterday. #2 mental status changes on presentation, computed tomography scan of the brain was done and revealed evidence of atrophy without any evidence of acute intracranial abnormality otherwise. #3 underlying history of hypertension well-controlled on current medications #4 underlying history of hypothyroidism maintained on Synthroid 25 g daily #5 underlying history of coronary artery disease with previous history of myocardial infarction stable at this time without any evidence of cardiac disease #6 patient is deaf she is able to communicate with reading questions and answering them At this time continue with current management with IV antibiotic awaiting surgery input will follow closely
[2017-05-12 15:32] VITALS: BP 115/53; PULSE 63
--- NOTE | 2017-05-12 16:31 | P.DS ---
Providers Date of admission: 05/04/17 20:51 Expected date of discharge: 05/12/17 Attending physician: Sydnee Garcia Consults: 05/04/17 20:52 Consult Physician Urgent Consulting Provider: Mario Blanco Consult Reason/Comments: ams Do you want consulting provider notified?: Yes 05/05/17 16:17 Consult Physician Routine Consulting Provider: Jhonny Soliz Consult Reason/Comments: cholecystitis Do you want consulting provider notified?: Yes Primary care physician: Ivone Sol Hospital Course: Diagnoses on discharge: #1 febrile illness, likely related to cholecystitis. urine did not reveal any evidence of infection, chest x-ray did not reveal any acute abnormality, case was discussed was ER physician and I have asked him to proceed with abdomen ultrasound, this was done later end revealed evidence of dilated gallbladder with gallstones with evidence of cholecystitis, consultation for Dr. soliz was initiated. patient underwent cholecystectomy during this admission #2 mental status changes on presentation, computed tomography scan of the brain was done and revealed evidence of atrophy without any evidence of acute intracranial abnormality otherwise. Mental Status changes resolved, and patient is back to her baseline. 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 Patient went to bed last night and never got out of bed today. Patient has had similar symptoms previously associated with urinary tract infection. No cough. Patient is deaf and provides limited history. Patient was found to have evidence of acute cholecystitis. Started on IV antibiotics. Patient evaluated by Dr. Concepcion this time he recommends outpatient cholecystectomy. Patient had evidence of urinary retention Brumfield catheter inserted with 1000 ml out. Patient lying in bed comfortably. We will try to switch patient over to oral pain medications she takes Percocets at home. Total bili has decreased to 1.7. 05/10/2017 patient lying in bed comfortably. Still has abdominal pain with palpation. Awaiting surgical recommendations about possible laps, cholecystectomy. On 05/11/2017 patient underwent laparoscopic cholecystectomy with Dr. Soliz without any complications she returns to the floor and is doing well On 05/12/2017 patient seen and examined she is doing fairly well post cholecystectomy At this time will consult physical therapy and occupational therapy, Patient was able to ambulate with walker was physical therapy she expressed wishes to go home today she was discharged home on 05/12/2017 She will follow-up with her primary care physician within one week Plan - Discharge Summary New Discharge Prescriptions: Continue Pantoprazole Sodium 40 mg PO DAILY Pregabalin [Lyrica] 100 mg PO TID Lisinopril [Zestril] 10 mg PO DAILY Furosemide [Lasix] 20 mg PO QAM Aspirin EC [Ecotrin Low Dose] 81 mg PO DAILY Atorvastatin Calcium [Lipitor] 80 mg PO HS Cholecalciferol [Vitamin D3] 5,000 unit PO DAILY Levothyroxine Sodium [Synthroid] 25 mcg PO QAM Metoprolol Tartrate [Lopressor] 12.5 mg PO BID oxyCODONE-APAP 5-325MG [Percocet 5-325 mg] 1 tab PO TID predniSONE 2.5 mg PO Q48H predniSONE 5 mg PO Q48H Discharge Medication List Furosemide [Lasix] 20 mg PO QAM 01/19/16 [History] Lisinopril [Zestril] 10 mg PO DAILY 01/19/16 [History] Pantoprazole Sodium 40 mg PO DAILY 01/19/16 [History] Pregabalin [Lyrica] 100 mg PO TID 01/19/16 [History] Aspirin EC [Ecotrin Low Dose] 81 mg PO DAILY 05/04/17 [History] Atorvastatin Calcium [Lipitor] 80 mg PO HS 05/04/17 [History] Cholecalciferol [Vitamin D3] 5,000 unit PO DAILY 05/04/17 [History] Levothyroxine Sodium [Synthroid] 25 mcg PO QAM 05/04/17 [History] Metoprolol Tartrate [Lopressor] 12.5 mg PO BID 05/04/17 [History] oxyCODONE-APAP 5-325MG [Percocet 5-325 mg] 1 tab PO TID 05/04/17 [History] predniSONE 2.5 mg PO Q48H 05/04/17 [History] predniSONE 5 mg PO Q48H 05/04/17 [History] Follow up Appointment(s)/Referral(s): Jhonny Soliz MD [Medical Doctor] - 05/19/17 2:30 pm Ivone Sol DO [Primary Care Provider] - 05/17/17 11:00 am
== END 2017-05-12 17:00 | disposition home or self-care (01) | DRG 417 ==
LOC: EC 18:29 → 5MS5E 20:51
PROVIDERS: ADMIT Internal Medicine; ATTEND Internal Medicine
PROC: 0FT44ZZ Resection of Gallbladder, Percutaneous Endoscopic Approach (ICD-10-PCS; principal; 2017-05-11 10:45)
DX: K80.12 Calculus of gallbladder with acute and chronic cholecystitis without obstruction (principal); G93.41 Metabolic encephalopathy; N17.9 Acute kidney failure, unspecified; D64.9 Anemia, unspecified; I10 Essential (primary) hypertension; R33.8 Other retention of urine; E78.5 Hyperlipidemia, unspecified; I25.10 Atherosclerotic heart disease of native coronary artery without angina pectoris; G89.29 Other chronic pain; E03.9 Hypothyroidism, unspecified; M54.30 Sciatica, unspecified side; M19.91 Primary osteoarthritis, unspecified site; H91.90 Unspecified hearing loss, unspecified ear; I25.2 Old myocardial infarction; H26.9 Unspecified cataract; Z90.13 Acquired absence of bilateral breasts and nipples; Z86.59 Personal history of other mental and behavioral disorders; Z96.649 Presence of unspecified artificial hip joint; Z87.440 Personal history of urinary (tract) infections; Z90.710 Acquired absence of both cervix and uterus; Z95.5 Presence of coronary angioplasty implant and graft; Z86.14 Personal history of Methicillin resistant Staphylococcus aureus infection; Z79.82 Long term (current) use of aspirin; Z79.891 Long term (current) use of opiate analgesic; Z79.52 Long term (current) use of systemic steroids; Z79.899 Other long term (current) drug therapy
CPT/HCPCS: 36415; 70450; 71020; 74176; 76705; 80053; 81003; 82728; 83540; 83550; 83605; 84132; 84550; 85025; 85027; 85610; 85730; 87040; 87086; 87324; 88304; 93005; 95819; 96374; 99285